=== PATIENT | male | born 1990 | race Hispanic/Latino ===

== ENCOUNTER 2019-12-18 09:37 | Emergency (ER) | payer BC ==
[2019-12-18] MEDS ORDERED: NA CHLORIDE 0.9% 1,000 ML ONE (10:24)
--- NOTE | 2019-12-18 10:36 | RAD REPORT ---
EXAM DESCRIPTION: CT - Stone Protocol - 12/18/2019 10:26 am CLINICAL HISTORY: Flank pain. HEMATURIA COMPARISON: No comparisons TECHNIQUE: Axial images were obtained without oral or IV contrast. Lack of contrast limits solid org an and vascular assessment. The [id number] spans the entirety of the system partially obscuring uppermost abdomen and lung bases. Coronal reformatted images were obtained and reviewed. All CT scans are performed using dose optimization technique as appropriate and may include automated exposure control or mA/KV adjustment according to patient size. FINDINGS: The lower lung navarrete are clear. Imaged portions of the liver and spleen show no suspicious findings on non-contrast imaging.Small fat containing umbilical hernia. The pancreas and adrenal glands are normal. No pathologic lymphadenopat hy in the abdomen or pelvis. No urinary tract stones or obstructive uropathy. No bowel obstruction, free air, free fluid or abscess. Normal appendix noted. No significant bony abnormality. IMPRESSION: No urinary tract stones or obstructive uropathy.
[2019-12-18 10:38] LABS: Absolute Lymphocytes (CBC) 1.9 K/uL (0.7-4.9); Basophils % 0.6 % (0-1.3); MPV 9.4 fL (7.6-11.3); RBC Red Blood Cell Count 5.11 M/uL (4.33-5.43)
[2019-12-18 10:47] LABS: ALT/SGPT 76 U/L (12-78); AST/SGOT 27 U/L (15-37); Albumin 3.5 g/dL (3.4-5.0); Alkaline Phosphatase 116 U/L (45-117); BUN Blood Urea Nitrogen 13 mg/dL (7-18); Bicarbonate 26 mmol/L (21-32); Bilirubin Direct 0.1 mg/dL (0-0.2); Bilirubin Total 0.4 mg/dL (0.2-1.0); Glucose Level 89 mg/dL (74-106); Lipase 67 U/L (73-393); Protein, Total 8.1 g/dL (6.4-8.2); Sodium Level 142 mmol/L (136-145)
--- NOTE | 2019-12-18 11:55 | ER ---
Nurse's Notes [facility] Name: Benitez Argueta Age: 29 yrs Sex: Male : 1990 Arrival Date: 12/18/2019 Time: 09:39 Bed 19 Private MD: Diagnosis: Hematuria, unspecified Presentation: 12/18 09:56 Chief complaint: Patient states: blood in urine with clots that began this morning. Pt ss reports that this has occurred before, but has never been seen for it. Pt states, "I talked to some people and they said it just happens some times." Denies pain. Coronavirus screen: The patient has NOT traveled to [place] in the past 14 days. Proceed with normal triage procedures. Ebola Screen: Patient denies exposure to infectious person. Patient denies travel to an Ebola-affected area in the 21 days before illness onset. Initial Sepsis Screen: Does the patient meet any 2 criteria? No. Patient's initial sepsis screen is negative. Does the patient have a suspected source of infection? No. Patient's initial sepsis screen is negative. Risk Assessment: Do you want to hurt yourself or someone else? Patient reports no desire to harm self or others. 09:56 Method Of Arrival: Ambulatory ss 09:56 Acuity: VAUGHN 3 ss Historical: - Allergies: 09:59 No Known Allergies; ss - Home Meds: 09:59 None [Active]; ss - PMHx: 09:59 None; ss - PSHx: 09:59 None; ss - Immunization history:: Adult Immunizations up to date. - Social history:: Smoking status: Patient denies any tobacco usage or history of. Screenin:00 Abuse screen: Denies threats or abuse. Nutritional screening: No deficits noted. em Tuberculosis screening: No symptoms or risk factors identified. Fall Risk None identified. Assessment: 10:10 General: Appears in no apparent distress. comfortable, Behavior is calm, cooperative, em Denies fever. Pain: Denies pain. Neuro: Level of Consciousness is awake, alert, obeys commands, Oriented to person, place, time, situation, Appropriate for age. Cardiovascular: Capillary refill < 3 seconds Patient's skin is warm and dry. Respiratory: Airway is patent Respiratory effort is even, unlabored, Respiratory pattern is regular, symmetrical. GI: Patient currently denies diarrhea, nausea, vomiting. : Reports blood in urine with clots that started this morning Denies burning with urination, discharge, pain. Derm: Skin is intact, is healthy with good turgor, Skin is pink, warm \\T\\ dry. Musculoskeletal: Capillary refill < 3 seconds, Range of motion: intact in all extremities. 11:30 Reassessment: Patient appears in no apparent distress at this time. Patient and/or em family updated on plan of care and expected duration. Pain level reassessed. Patient is alert, oriented x 3, equal unlabored respirations, skin warm/dry/pink. Patient denies pain at this time. 12:15 Reassessment: Patient appears in no apparent distress at this time. Patient and/or em family updated on plan of care and expected duration. Pain level reassessed. Patient is alert, oriented x 3, equal unlabored respirations, skin warm/dry/pink. reports passing small blood clots towards the end after voiding, provider notified Patient denies pain at this time. Vital Signs: 09:51 BP 129 / 81; Pulse 72; Resp 18; Pulse Ox 99% on R/A; Pain 0/10; em 09:56 BP 129 / 81; Pulse 67; Resp 16; Temp 98.0(TE); Pulse Ox 97% on R/A; Weight 104.33 kg; ss Height 5 ft. 8 in. (172.72 cm); Pain 0/10; 11:00 BP 128 / 85; Pulse 71; Resp 18; Pulse Ox 99% on R/A; Pain 0/10; em 12:01 BP 118 / 78; Pulse 64; Resp 17; Temp 98.1(O); Pulse Ox 100% on R/A; mh5 09:56 Body Mass Index 34.97 (104.33 kg, 172.72 cm) ED Course: 09:39 Patient arrived in ED. fj1 09:49 Mario Contreras PA is PHCP. jmm 09:49 Juan Alberto Elias MD is Attending Physician. jmm 09:55 Mahamed Gillespie, IMMANUEL is Primary Nurse. em 09:58 Triage completed. ss 09:59 Arm band placed on right wrist. ss 10:00 Patient has correct armband on for positive identification. Bed in low position. Call em light in reach. Adult w/ patient. 10:15 Initial lab(s) drawn, by me, sent to lab. Inserted saline lock: 20 gauge in right em antecubital area, using aseptic technique. Blood collected. 10:29 CT Stone Protocol In Process Unspecified. EDMS 11:54 Benton Campa MD is Referral Physician. jmm 12:23 No provider procedures requiring assistance completed. IV discontinued, intact, em bleeding controlled, No redness/swelling at site. Pressure dressing applied. Administered Medications: 10:34 Drug: NS 0.9% 1000 ml Route: IV; Rate: 1 bolus; Site: right antecubital; em 11:30 Follow up: IV Status: Completed infusion; IV Intake: 1000ml em Intake: 11:30 IV: 1000ml; Total: 1000ml. em Outcome: 11:54 Discharge ordered by . jmm 12:26 Discharged to home ambulatory, with family. em 12:26 Condition: good 12:26 Discharge instructions given to patient, family, Instructed on discharge instructions, follow up and referral plans. Demonstrated understanding of instructions, follow-up care. 12:29 Patient left the ED. em Signatures: Dispatcher [employer] EDMS Mario Contreras PA PA jmm Munoz, Edgar, RN RN Dorothea Turner, Payton Brandon RN [facility] Vincenzo Love [facility]
--- NOTE | 2019-12-18 11:55 | EDPHYS ---
Physician Documentation [facility] Name: Benitez Argueta Age: 29 yrs Sex: Male : 1990 Arrival Date: 12/18/2019 Time: 09:39 Bed 19 Private MD: GILDA Physician Juan Alberto Elias HPI: 12/18 10:03 This 29 yrs old Male presents to ER via Ambulatory with complaints of Urinary jmm Problem. 10:03 The patient presents with urinary symptoms, hematuria. Onset: The symptoms/episode jmm began/occurred acutely. Modifying factors: The symptoms are alleviated by nothing, the symptoms are aggravated by nothing. Associated signs and symptoms:. This is a 29 year old male with no known chronic medical conditions that presents to the ED with complaints of blood clots in his urine. Denies abdominal pain, denies painful urination. Denies fever or vomiting. Patient states having a similar episode approx 6 months ago which had resolved. . Historical: - Allergies: 09:59 No Known Allergies; ss - Home Meds: 09:59 None [Active]; ss - PMHx: 09:59 None; ss - PSHx: 09:59 None; ss - Immunization history:: Adult Immunizations up to date. - Social history:: Smoking status: Patient denies any tobacco usage or history of. ROS: 10:03 Constitutional: Negative for fever, chills, and weight loss, Cardiovascular: Negative jmm for chest pain, palpitations, and edema, Respiratory: Negative for shortness of breath, cough, wheezing, and pleuritic chest pain, Abdomen/GI: Negative for abdominal pain, nausea, vomiting, diarrhea, and constipation, Back: Negative for injury and pain. 10:03 : Positive for hematuria. 10:03 All other systems are negative. Exam: 10:03 Constitutional: This is a well developed, well nourished patient who is awake, alert, jmm and in no acute distress. Head/Face: atraumatic. Eyes: EOMI, no conjunctival erythema appreciated ENT: Moist Mucus Membranes Neck: Trachea midline, Supple Chest/axilla: Normal chest wall appearance and motion. Cardiovascular: Regular rate and rhythm. No edema appreciated Respiratory: Normal respirations, no respiratory distress appreciated 10:03 Back: Normal ROM Skin: General appearance color normal MS/ Extremity: Moves all extremities, no obvious deformities appreciated, no edema noted to the lower extremities Neuro: Awake and alert, normal gait Psych: Behavior is normal, Mood is normal, Patient is cooperative and pleasant 10:03 Abdomen/GI: Inspection: abdomen appears normal, Bowel sounds: normal, Palpation: abdomen is soft and non-tender. 10:03 Back: CVA tenderness, is absent. Vital Signs: 09:51 BP 129 / 81; Pulse 72; Resp 18; Pulse Ox 99% on R/A; Pain 0/10; em 09:56 BP 129 / 81; Pulse 67; Resp 16; Temp 98.0(TE); Pulse Ox 97% on R/A; Weight 104.33 kg; ss Height 5 ft. 8 in. (172.72 cm); Pain 0/10; 11:00 BP 128 / 85; Pulse 71; Resp 18; Pulse Ox 99% on R/A; Pain 0/10; em 12:01 BP 118 / 78; Pulse 64; Resp 17; Temp 98.1(O); Pulse Ox 100% on R/A; mh5 09:56 Body Mass Index 34.97 (104.33 kg, 172.72 cm) ss MDM: 10:03 Patient medically screened. [facility] 11:52 Data reviewed: vital signs, nurses notes. Counseling: I had a detailed discussion with don the patient and/or guardian regarding: the historical points, exam findings, and any diagnostic results supporting the discharge/admit diagnosis, lab results, radiology results, the need for outpatient follow up, to return to the emergency department if symptoms worsen or persist or if there are any questions or concerns that arise at home. ED course: Imaging studies negative. Patient is alert and non toxic in appearance in the ED. Patient advised to follow up with urology for further evaluation and this may be a symptoms of cancer. Patient otherwise given strict return precautions. Patient understood and agrees with the plan of care. . 12/18 10:09 Order name: Basic Metabolic Panel; Complete Time: 10:50 [facility] 12/18 10:09 Order name: CBC with Diff; Complete Time: 10:43 [facility] 12/18 10:09 Order name: Creatinine for Radiology; Complete Time: 10:50 [facility] 12/18 10:09 Order name: Hepatic Function; Complete Time: 10:50 [facility] 12/18 10:09 Order name: Lipase; Complete Time: 10:50 [facility] 12/18 10:09 Order name: Urine Culture [facility] 12/18 10:09 Order name: IV Saline Lock; Complete Time: 10:49 [facility] 12/18 10:09 Order name: Labs collected and sent; Complete Time: 10:49 [facility] 12/18 10:09 Order name: Urine Dipstick-Ancillary (obtain specimen); Complete Time: 11:29 [facility] 12/18 10:09 Order name: CT Stone Protocol; Complete Time: 10:43 [facility] 12/18 11:38 Order name: Urine Dipstick--Ancillary (enter results) dh4 Administered Medications: 10:34 Drug: NS 0.9% 1000 ml Route: IV; Rate: 1 bolus; Site: right antecubital; em 11:30 Follow up: IV Status: Completed infusion; IV Intake: 1000ml em Disposition: 17:45 Co-signature as Attending Physician, Juan Alberto Elias MD Chart signed for administrative ps1 purposes. . Disposition: 12/18/19 11:54 Discharged to Home. Impression: Hematuria, unspecified. - Condition is Stable. - Discharge Instructions: Hematuria, Adult. - Medication Reconciliation Form, Thank You Letter, Antibiotic Education, Prescription Opioid Use form. - Follow up: Benton Campa MD; When: 2 - 3 days; Reason: Recheck today's complaints, Continuance of care, Re-evaluation by your physician. Signatures: Dispatcher [employer] EDVA Mario Contreras PA PA [facility] Mahamed Gillespie RN RN em Smirch, Shelby, RN RN ss Singer, Phillip, MD MD ps1 Corrections: (The following items were deleted from the chart) 12:29 11:54 12/18/2019 11:54 Discharged to Home. Impression: Hematuria, unspecified. em Condition is Stable. Forms are Medication Reconciliation Form, Thank You Letter, Antibiotic Education, Prescription Opioid Use. Follow up: Benton Campa; When: 2 - 3 days; Reason: Recheck today's complaints, Continuance of care, Re-evaluation by your physician. [facility]
[2019-12-18 12:39] VITALS: BP 118/78; TEMP 98.1; O2SAT 100
[2019-12-18 12:40] LABS: Urine Blood 3+ (NEG); Urine Glucose NEGATIVE (NEG); Urine Protein 1+ (NEG); Urine pH 5.5 (5.0-7.0)
== END 2019-12-18 12:29 | disposition home or self-care (01) ==
LOC: ER 09:37
DX: R31.9 Hematuria, unspecified (principal)
CPT/HCPCS: 87088; 85025; 80048; 36415; 80076; 81003; 83690; 76377; 74176; 96360; 99284; J7030; 87086

== ENCOUNTER 2020-07-22 01:58 | Emergency (ER) | payer BC, SELFPAY ==
[2020-07-22] MEDS ORDERED: MEPERIDINE HCL 50 MG/ML ONE (02:43)
[2020-07-22] MEDS ORDERED: dexAMETHasone 4 MG/ML VIAL ONE (02:44)
--- NOTE | 2020-07-22 03:25 | EDPHYS ---
Physician Documentation [facility] Name: Benitez Argueta Age: 30 yrs Sex: Male : 1990 Arrival Date: 07/22/2020 Time: 02:02 Bed 4 Private MD: ED Physician Shukri Covarrubias HPI: 07/22 02:30 This 30 yrs old Male presents to ER via Ambulatory with complaints of Low Back rn Pain. 02:30 The patient presents with pain that is acute. The symptoms are located in the low back. rn The pain does not radiate. The problem was sustained when bending over. 02:31 Onset: The symptoms/episode began/occurred yesterday. Modifying factors: The patient rn symptoms are alleviated by specific position, the patient symptoms are aggravated by any movement, supine position. Severity of symptoms: At their worst the symptoms were moderate, in the emergency department the symptoms are unchanged. The patient has not experienced similar symptoms in the past. The patient has not recently seen a physician. No direct trauma or fall, began acutely while bending over to put on pants. NO bowel or bladder issues. No weakness. No numbness/tingling.. Historical: - Allergies: 02:07 No Known Allergies; sg - Home Meds: 02:07 None [Active]; sg - PMHx: 02:07 None; sg - PSHx: 02:07 None; sg - Immunization history:: Adult Immunizations up to date. - Social history:: Smoking status: Patient denies any tobacco usage or history of. - Family history:: not pertinent. - Hospitalizations: : No recent hospitalization is reported. ROS: 02:31 Constitutional: Negative for fever, chills, and weight loss, Neck: Negative for injury, rn pain, and swelling, Cardiovascular: Negative for chest pain, palpitations, and edema, Respiratory: Negative for shortness of breath, cough, wheezing, and pleuritic chest pain, Abdomen/GI: Negative for abdominal pain, nausea, vomiting, diarrhea, and constipation, Back: Negative for injury : Negative for injury, bleeding, discharge, and swelling, MS/Extremity: Negative for injury and deformity, Neuro: Negative for headache, weakness, numbness, tingling, and seizure. Exam: 02:31 Constitutional: This is a well developed, well nourished patient who is awake, alert, men's furnishings salesperson to room, walking slowly Head/Face: Normocephalic, atraumatic. Cardiovascular: Regular rate and rhythm. No pulse deficits. Respiratory: Speaking full sentences, unlabored Abdomen/GI: Soft, non-tender Skin: Warm, dry MS/ Extremity: Pulses equal, no cyanosis. Neurovascular intact. Full, normal range of motion. Equal circumference. Neuro: Awake and alert, GCS 15, oriented to person, place, time, and situation. Cranial nerves II-XII grossly intact. Motor strength 5/5 in all extremities. Sensory grossly intact. Cerebellar exam normal. Antalgic gait Vital Signs: 02:59 BP 136 / 90; Pulse 85; Resp 18; Temp 98.4(TE); Pulse Ox 98% on R/A; Pain 3/10; mg2 03:34 BP 126 / 80; Pulse 78; Resp 18; Temp 98.4; Pulse Ox 100% on R/A; mg2 MDM: 02:04 Patient medically screened. rn 03:22 Differential diagnosis: strain, sciatica, Herniated disc bulging disc, radiculopathy, rn muscle spasm. Data reviewed: vital signs, nurses notes, radiologic studies, CT scan, and as a result, I will discharge patient. Counseling: I had a detailed discussion with the patient and/or guardian regarding: the historical points, exam findings, and any diagnostic results supporting the discharge/admit diagnosis, radiology results, the need for outpatient follow up, to return to the emergency department if symptoms worsen or persist or if there are any questions or concerns that arise at home. Response to treatment: the patient's symptoms have mildly improved after treatment, and as a result, I will discharge patient. Special discussion: I discussed with the patient/guardian in detail that at this point there is no indication for admission to the hospital. It is understood, however, that if the symptoms persist or worsen the patient needs to return immediately for re-evaluation. 03:22 ED course: NO acute findings on ct lumbar spine, improved with medication, will dc home rn with pcp f/u, steroids, muscle relaxer, and return precautions. . 07/22 02:20 Order name: CT Lumbar Spine Wo Con rn 07/22 02:20 Order name: IV Start; Complete Time: 02:37 rn Administered Medications: 02:33 Drug: Demerol 25 mg {Note: RASS 0.} Route: IVP; Site: right antecubital; 03:34 Follow up: Response: No adverse reaction mg2 02:37 Drug: Decadron - Dexamethasone 10 mg Route: IVP; Site: right antecubital; 03:34 Follow up: Response: No adverse reaction mg2 03:34 Drug: TORadol - Ketorolac 15 mg Route: IVP; Site: right antecubital; [facility] 03:34 Follow up: Response: No adverse reaction; Medication administered at discharge. mg2 Disposition: 07/22/20 03:24 Discharged to Home. Impression: Low back pain. - Condition is Stable. - Discharge Instructions: Back Pain, Adult. - Prescriptions for Ultram 50 mg Oral Tablet - take 1 tablet by ORAL route every 6 hours As needed; 15 tablet. Cyclobenzaprine 10 mg Oral Tablet - take 1 tablet by ORAL route every 8 hours As needed; 15 tablet. Medrol (Trevor) 4 mg Oral Tablets, Dose Pack - take 1 tablet by ORAL route as directed - follow package instructions; 1 packet. - Medication Reconciliation Form, Thank You Letter, Antibiotic Education, Prescription Opioid Use form. - Follow up: Private Physician; When: As needed; Reason: Recheck today's complaints, Re-evaluation by your physician. - Problem is new. - Symptoms have improved. Signatures: Dispatcher [employer] EDDavid Deluna RN RN Shukri Covarrubias MD MD [facility]n [facility] Harris RN RN mg2 Corrections: (The following items were deleted from the chart) 03:35 03:24 07/22/2020 03:24 Discharged to Home. Impression: Low back pain. Condition is mg2 Stable. Forms are Medication Reconciliation Form, Thank You Letter, Antibiotic Education, Prescription Opioid Use. Follow up: Private Physician; When: As needed; Reason: Recheck today's complaints, Re-evaluation by your physician. Problem is new. Symptoms have improved. rn
--- NOTE | 2020-07-22 03:25 | ER ---
Nurse's Notes [facility] Name: Benitez Argueta Age: 30 yrs Sex: Male : 1990 Arrival Date: 07/22/2020 Time: 02:02 Bed 4 Private MD: Diagnosis: Low back pain Presentation: 07/22 02:07 Chief complaint: Patient states: Lower back pain that worsens with ambulation/activity, sg pt reports the pain is worse when laying flat, feels most comfortable while sitting upright, pt denies recent injury or trauma for triage, denies N/V/D/Fever at this time. Coronavirus screen: Client denies travel out of the [place] in the last 14 days. At this time, the client does not indicate any symptoms associated with coronavirus-19. Ebola Screen: Patient negative for fever greater than or equal to 101.5 degrees Fahrenheit, and additional compatible Ebola Virus Disease symptoms Patient denies exposure to infectious person. Patient denies travel to an Ebola-affected area in the 21 days before illness onset. No symptoms or risks identified at this time. Initial Sepsis Screen: Does the patient meet any 2 criteria? No. Patient's initial sepsis screen is negative. Does the patient have a suspected source of infection? No. Patient's initial sepsis screen is negative. Risk Assessment: Do you want to hurt yourself or someone else? Patient reports no desire to harm self or others. Onset of symptoms was July 22, 2020. Care prior to arrival: None. Mechanism of Injury: No Mechanism of Injury. Transition of care: patient was not received from another setting of care. 02:07 Method Of Arrival: Ambulatory sg 02:07 Acuity: VAUGHN 4 sg Triage Assessment: 02:07 General: Appears in no apparent distress. uncomfortable, unkempt, well developed, well sg nourished, Behavior is calm, cooperative, appropriate for age. Pain: Complains of pain in lumbar area, left low back and right low back Quality of pain is described as aching, dull, sharp. EENT: No signs and/or symptoms were reported regarding the EENT system. Neuro: Level of Consciousness is awake, alert, obeys commands, Oriented to person, place, time, situation, Child Neurologist are equal bilaterally Moves all extremities. Speech is normal, Facial symmetry appears normal. Cardiovascular: Patient's skin is warm and dry. Chest pain is denied. Respiratory: Airway is patent Respiratory effort is even, unlabored, Respiratory pattern is regular, symmetrical. GI: No signs and/or symptoms were reported involving the gastrointestinal system. : No signs and/or symptoms were reported regarding the genitourinary system. Derm: Skin is pink, warm \T\ dry. Musculoskeletal: Circulation, motion, and sensation intact. Range of motion: intact in all extremities. Historical: - Allergies: 02:07 No Known Allergies; sg - Home Meds: 02:07 None [Active]; sg - PMHx: 02:07 None; sg - PSHx: 02:07 None; sg - Immunization history:: Adult Immunizations up to date. - Social history:: Smoking status: Patient denies any tobacco usage or history of. - Family history:: not pertinent. - Hospitalizations: : No recent hospitalization is reported. Screenin:00 Abuse screen: Denies threats or abuse. Denies injuries from another. Nutritional mg2 screening: No deficits noted. Tuberculosis screening: No symptoms or risk factors identified. Fall Risk IV access (20 points). Assessment: 02:59 General: Appears in no apparent distress. comfortable, Behavior is calm, cooperative. mg2 Pain: Complains of pain in lumbar area. Neuro: Level of Consciousness is awake, alert, obeys commands, Oriented to person, place, time, situation. Cardiovascular: Capillary refill < 3 seconds Patient's skin is warm and dry. Respiratory: Airway is patent Respiratory effort is even, unlabored, Respiratory pattern is regular, symmetrical. GI: No signs and/or symptoms were reported involving the gastrointestinal system. : No signs and/or symptoms were reported regarding the genitourinary system. EENT: No deficits noted. Derm: Skin is intact, is healthy with good turgor, Skin is pink, warm \T\ dry. normal. Musculoskeletal: Circulation, motion, and sensation intact. Capillary refill < 3 seconds, Reports pain in back. Vital Signs: 02:59 BP 136 / 90; Pulse 85; Resp 18; Temp 98.4(TE); Pulse Ox 98% on R/A; Pain 3/10; mg2 03:34 BP 126 / 80; Pulse 78; Resp 18; Temp 98.4; Pulse Ox 100% on R/A; mg2 ED Course: 02:02 Patient arrived in ED. cl3 02:04 Shukri Covarrubias MD is Attending Physician. rn 02:06 Arm band placed on. sg 02:08 Triage completed. 02:09 Ree Polk is Primary Nurse. 02:30 Inserted saline lock: 20 gauge in right antecubital area, using aseptic technique. by gela Keenan RN. 03:02 Patient has correct armband on for positive identification. Door closed. mg2 03:02 No provider procedures requiring assistance completed. mg2 03:03 CT Lumbar Spine Wo Con In Process Unspecified. EDMS 03:34 IV discontinued, intact, bleeding controlled, No redness/swelling at site. Pressure mg2 dressing applied. Administered Medications: 02:33 Drug: Demerol 25 mg {Note: RASS 0.} Route: IVP; Site: right antecubital; 03:34 Follow up: Response: No adverse reaction mg2 02:37 Drug: Decadron - Dexamethasone 10 mg Route: IVP; Site: right antecubital; 03:34 Follow up: Response: No adverse reaction mg2 03:34 Drug: TORadol - Ketorolac 15 mg Route: IVP; Site: right antecubital; [facility] 03:34 Follow up: Response: No adverse reaction; Medication administered at discharge. mg2 Outcome: 03:24 Discharge ordered by . rn 03:35 Discharged to home ambulatory. mg2 03:35 Condition: good 03:35 Discharge instructions given to patient, Instructed on discharge instructions, follow up and referral plans. medication usage, Demonstrated understanding of instructions, follow-up care, medications, Prescriptions given X 3. 03:35 Patient left the ED. mg2 Signatures: Dispatcher [employer] EDNE David Mendez, RN IMMANUEL Shukri Covarrubias MD MD rn Habalo, Winsy Kory Harris RN RN [facility] Emmanuel Tucker cl3
[2020-07-22] MEDS ORDERED: KETOROLAC 30 MG/ML INJ ONE (03:40)
[2020-07-22 03:45] VITALS: TEMP 98.4
[2020-07-22 03:47] VITALS: BP 126/80; O2SAT 100
--- NOTE | 2020-07-22 22:21 | RAD REPORT ---
EXAM DESCRIPTION: CT - Spine Lumbar Wo Con - 07/22/2020 6:35 am CLINICAL HISTORY: 30 years Male LOWER BACK PAIN COMPARISON: None TECHNIQUE: Multiplanar imaging through the lumbar spine without contrast. This exam was performed according to our departmental dose-optimization program, which includes automated exposure control, a djustment of the mA and/or kV according to patient size and/or use of iterative reconstruction techni que. DLP: 1607 mGy*cm FINDINGS: No fracture. No subluxation. Disc spaces are preserved. Paraspinal soft tissues are unremarkable. Visualized abdomen demonstrates no acute abnormality. IMPRESSION: No acute abnormality. No fracture or subluxation. Electronically signed by: Eder Reynolds DO 07/22/2020 3:14 AM CDT Due to temporary technical issues with the PACS/Fluency reporting system, reports are being signed by the in house radiologist without review as a courtesy to ensure prompt reporting. The interpreting r adiologist is fully responsible for the content of the report.
== END 2020-07-22 03:35 | disposition home or self-care (01) ==
LOC: ER 01:58
DX: M54.5 Low back pain (principal)
CPT/HCPCS: 72131; 96374; 96375; 99284; J1100; J2175

== ENCOUNTER 2022-08-29 04:25 | Emergency (ER) | payer SELFPAY ==
[2022-08-29] MEDS ORDERED: IPRATROPIUM BROM 0.5MG/2.5ML ONE (05:08)
[2022-08-29] MEDS ORDERED: ALBUTEROL 2.5 MG/3 ML NEB SOL ONE (05:08)
[2022-08-29 05:49] LABS: Potassium 3.8 mmol/L (3.5-5.1)
[2022-08-29 06:00] LABS: Absolute Lymphocytes (CBC) 2.1 K/uL (0.7-4.9); Hematocrit 36.6 % (39.6-49.0); Lymphocytes % 22.5 % (15.3-44.8); MCV 82.4 fL (80-100); MPV 8.6 fL (7.6-11.3); RBC Red Blood Cell Count 4.44 M/uL (4.33-5.43)
[2022-08-29 06:20] LABS: Protime INR 1.15
--- NOTE | 2022-08-29 07:42 | RAD REPORT ---
EXAM DESCRIPTION: CT - Chest For Pe Angio - 08/29/2022 7:19 am CLINICAL HISTORY: Hemoptysis, cough, chest pain COMPARISON: Chest Single View dated 08/29/2022 TECHNIQUE: Dynamically enhanced 3 mm thick images of the chest were obtained during administration o f approximately 150mL Isovue 370 IV contrast. Coronal and oblique MIP reconstruction images were gene rated and reviewed. Exam utilizes a protocol to evaluate the pulmonary arterial tree. All CT scans are performed using dose optimization technique as appropriate and may include automated exposure control or mA/KV adjustment according to patient size. FINDINGS: No pulmonary emboli are identified. The aorta as imaged shows no acute or suspicious finding. No pericardial thickening or effusion. No focal mass or consolidation. Ground-glass opacities are present in the lower lung navarrete, most pro nounced on the right. No endobronchial lesion. No pleural effusion or pleural thickening. No mediastinal or hilar suspicious masses. No chest wall masses or abnormal axillary lymphadenopathy. IMPRESSION: No pulmonary emboli identified. Lung parenchymal ground-glass opacification most likely alveolar edema from failure or volume overloa d.COVID pneumonia or other viral infiltrative process is possible.
[2022-08-29 08:44] LABS: SARS-CoV-2 Antigen Rapid Res Negative (Negative)
[2022-08-29 08:45] LABS: Troponin High Sensitivity 7.8 pg/mL (<58.9)
--- NOTE | 2022-08-29 09:47 | ER ---
Nurse's Notes [facility] Name: Benitez Argueta Age: 32 yrs Sex: Male : 1990 Arrival Date: 08/29/2022 Time: 04:27 Bed 17 Private MD: Diagnosis: Cough;Hemoptysis Presentation: 08/29 04:42 Chief complaint: Patient states: I've been having a cough for about three weeks and I kd3 started to have some blood in my mucus that's worse in the morning. the blood has seemed to have gotten worse today so i wanted to come get it checked out. Coronavirus screen: Vaccine status: Patient reports receiving the 2nd dose of the covid vaccine. [employer]. Ebola Screen: No symptoms or risks identified at this time. Initial Sepsis Screen: Does the patient meet any 2 criteria? No. Patient's initial sepsis screen is negative. Does the patient have a suspected source of infection? No. Patient's initial sepsis screen is negative. Risk Assessment: Do you want to hurt yourself or someone else? Patient reports no desire to harm self or others. Onset of symptoms was August 29, 2022. 04:42 Method Of Arrival: Ambulatory kd3 04:42 Acuity: VAUGHN 4 kd3 Triage Assessment: 04:45 General: Appears in no apparent distress. Behavior is calm, cooperative. Pain: Denies kd3 pain. EENT: Reports mucus with blood . Neuro: Level of Consciousness is awake, alert, obeys commands, Oriented to person, place, time, situation. Cardiovascular: Patient's skin is warm and dry. Respiratory: Airway is patent Trachea midline Respiratory effort is even, unlabored, Respiratory pattern is regular, symmetrical. Historical: - Allergies: 04:45 No Known Allergies; kd3 - Home Meds: 04:45 None [Active]; kd3 - PMHx: 04:45 None; kd3 - Immunization history:: Adult Immunizations up to date. - Social history:: Smoking status: unknown. Screenin:46 Abuse screen: Denies threats or abuse. Denies injuries from another. Nutritional kd3 screening: No deficits noted. Tuberculosis screening: No symptoms or risk factors identified. Fall Risk None identified. Assessment: 06:29 General: Appears in no apparent distress. Behavior is calm, cooperative. Neuro: Level kd3 of Consciousness is awake, alert, obeys commands, Oriented to person, place, time, situation. Cardiovascular: Patient's skin is warm and dry. Respiratory: Airway is patent Trachea midline Respiratory effort is even, unlabored, Respiratory pattern is regular, symmetrical, Sputum is bloody. 07:53 Reassessment: Patient and/or family updated on plan of care and expected duration. Pain mb8 level reassessed. Patient is alert, oriented x 3, equal unlabored respirations, skin warm/dry/pink. Patient states feeling better. Vital Signs: 04:42 BP 129 / 63; Pulse 109; Resp 19; Temp 98.8; Pulse Ox 99% on R/A; Weight 129.27 kg; kd3 Height 5 ft. 9 in. (175.26 cm); Pain 0/10; 06:29 Pulse 108; Resp 19; Pulse Ox 98% on R/A; kd3 07:52 BP 108 / 63; Pulse 95; Resp 16; Temp 97.8(TE); Pulse Ox 97% on R/A; Pain 0/10; mb8 04:42 Body Mass Index 42.09 (129.27 kg, 175.26 cm) kd3 ED Course: 04:27 Patient arrived in ED. bp1 04:39 Mesfin Burciaga MD is Attending Physician. sp3 04:42 Gilda Saxena, RN is Primary Nurse. kd3 04:45 Triage completed. kd3 04:45 Arm band placed on right wrist. kd3 04:46 Patient has correct armband on for positive identification. kd3 04:46 No provider procedures requiring assistance completed. kd3 05:12 XRAY Chest (1 view) In Process Unspecified. EDMS 05:28 Initial lab(s) drawn, by me, sent to lab. Missed attempt(s): 22 gauge in left in right ll3 wrist. antecubital area. 05:33 PT-INR Sent. kd3 05:33 CBC with Diff Sent. kd3 05:33 Basic Metabolic Panel Sent. kd3 05:33 Flu Sent. kd3 06:28 Inserted saline lock: 22 gauge in right forearm, using aseptic technique. Blood kd3 collected. 06:58 Attending Physician role handed off by Mesfin Burciaga MD rn 06:58 Shukri Covarrubias MD is Attending Physician. rn 07:20 CT Chest For PE Angio In Process Unspecified. EDMS 07:53 No apparent distress. Resting quietly. Awaiting re-evaluation by ER provider. mb8 09:46 Eliceo Herndon MD is Referral Physician. rn 09:57 IV discontinued, intact, bleeding controlled, No redness/swelling at site. Pressure mb8 dressing applied. Administered Medications: 05:25 Drug: DuoNeb (albuterol 2.5 mg, ipratropium 0.5 mg) (3:1) (2.5 mg - 0.5 mg) 3 ml Route: ll3 Nebulizer; 07:05 Follow up: Response: No adverse reaction mb8 Medication: 04:46 VIS not applicable for this client. kd3 Outcome: 09:46 Discharge ordered by MD. rn 09:57 Discharged to home ambulatory. mb8 09:57 Condition: stable 09:57 Discharge instructions given to patient, Instructed on discharge instructions, follow up and referral plans. medication usage, Demonstrated understanding of instructions, follow-up care, medications, Prescriptions given X 2. 09:58 Patient left the ED. mb8 Signatures: Dispatcher [employer] EDMS Shukri Covarrubias MD MD rn Paniauga, Brittany bp1 Patel, Setul, MD MD sp3 Olga Sauceda RN RN 3 Gilda Saxena RN RN kd3 Jerod Benitez, RN RN mb8
--- NOTE | 2022-08-29 09:47 | EDPHYS ---
Physician Documentation [facility] Name: Benitez Argueta Age: 32 yrs Sex: Male : 1990 Arrival Date: 08/29/2022 Time: 04:27 Bed 17 Private MD: ED Physician Shukri Covarrubias HPI: 08/29 05:11 This 32 yrs old Male presents to ER via Ambulatory with complaints of Cough, - sp3 Blood. 05:11 32-year-old male with no significant past medical history presents to the ED with chief sp3 complaint coughing and upper respiratory congestion for approximately 4 to 5 days. Over the last 48 hours, he states that during the cough he has blood-tinged sputum that is progressively increasing. Is any chest pain or back pain or difficulty breathing. He also denies any long periods of immobilization including travel history, smoking, prior history of pulmonary embolism or DVT. Systems, he denies headache, neck pain, back pain, chest pain, abdominal pain, nausea, vomiting, diarrhea, rash, or any other symptoms at this time. He also denies fever known sick contacts.. Historical: - Allergies: 04:45 No Known Allergies; kd3 - Home Meds: 04:45 None [Active]; kd3 - PMHx: 04:45 None; kd3 - Immunization history:: Adult Immunizations up to date. - Social history:: Smoking status: unknown. ROS: 05:13 Constitutional: Negative for fever, chills, and weight loss, Eyes: Negative for injury, sp3 pain, redness, and discharge, Neck: Negative for injury, pain, and swelling, Cardiovascular: Negative for chest pain, palpitations, and edema, Abdomen/GI: Negative for abdominal pain, nausea, vomiting, diarrhea, and constipation, Back: Negative for injury and pain, MS/Extremity: Negative for injury and deformity, Skin: Negative for injury, rash, and discoloration, Neuro: Negative for headache, weakness, numbness, tingling, and seizure, Psych: Negative for depression, anxiety, suicide ideation, homicidal ideation, and hallucinations, Allergy/Immunology: Negative for hives, rash, and allergies, Endocrine: Negative for neck swelling, polydipsia, polyuria, polyphagia, and marked weight changes. 05:13 All other systems are negative. Exam: 05:13 Constitutional: This is a well developed, well nourished patient who is awake, alert, sp3 and in no acute distress. Head/Face: Normocephalic, atraumatic. Eyes: Pupils equal round and reactive to light, extra-ocular motions intact. Lids and lashes normal. Conjunctiva and sclera are non-icteric and not injected. Cornea within normal limits. Periorbital areas with no swelling, redness, or edema. ENT: Nares patent. No nasal discharge, no septal abnormalities noted. External auditory canals are clear. Oropharynx with no redness, swelling, or masses, exudates, or evidence of obstruction, uvula midline. Mucous membranes moist. Neck: Trachea midline, no thyromegaly or masses palpated, and no cervical lymphadenopathy. Supple, full range of motion without nuchal rigidity, or vertebral point tenderness. No Meningismus. Chest/axilla: Normal chest wall appearance and motion. Nontender with no deformity. No lesions are appreciated. Cardiovascular: Regular rate and rhythm with a normal S1 and S2. No gallops, murmurs, or rubs. Normal PMI, no JVD. No pulse deficits. Abdomen/GI: Soft, non-tender, with normal bowel sounds. No distension or tympany. No guarding or rebound. No evidence of tenderness throughout. Back: No spinal tenderness. No costovertebral tenderness. Full range of motion. Skin: Warm, dry with normal turgor. Normal color with no rashes, no lesions, and no evidence of cellulitis. MS/ Extremity: Pulses equal, no cyanosis. Neurovascular intact. Full, normal range of motion. Neuro: Awake and alert, GCS 15, oriented to person, place, time, and situation. Cranial nerves II-XII grossly intact. Motor strength 5/5 in all extremities. Sensory grossly intact. Cerebellar exam normal. Normal gait. 05:13 Cardiovascular: Heart rate in the 88-92 range on my examination.. 05:13 Respiratory: Differential cough with rhonchi diffuse. . Vital Signs: 04:42 BP 129 / 63; Pulse 109; Resp 19; Temp 98.8; Pulse Ox 99% on R/A; Weight 129.27 kg; kd3 Height 5 ft. 9 in. (175.26 cm); Pain 0/10; 06:29 Pulse 108; Resp 19; Pulse Ox 98% on R/A; kd3 07:52 BP 108 / 63; Pulse 95; Resp 16; Temp 97.8(TE); Pulse Ox 97% on R/A; Pain 0/10; mb8 04:42 Body Mass Index 42.09 (129.27 kg, 175.26 cm) kd3 MDM: 04:58 Patient medically screened. sp3 05:14 Data reviewed: vital signs, nurses notes. ED course: 32-year-old male with likely sp3 bronchitis given symptoms described in the HPI. Lower likely possibilities are pneumonia, viral syndrome, influenza, and a distance possibility of pulmonary embolism which we will evaluate with chest CT. I am also not suspicious of sepsis, ACS, vascular pathology including dissection, or any other critical findings at this time. Imaging as noted, laboratory values, and administer nebulizer x1 disposition likely home on antibiotics for bronchitis and follow-up with PCP -- Pt to be signed out to AM physician for final disposition.. 09:45 Differential Diagnosis: Influenza Upper Respiratory Infection Viral Syndrome Pneumonia rn Other pulmonary edema. Counseling: I had a detailed discussion with the patient and/or guardian regarding: the historical points, exam findings, and any diagnostic results supporting the discharge/admit diagnosis, lab results, radiology results, the need for outpatient follow up, to return to the emergency department if symptoms worsen or persist or if there are any questions or concerns that arise at home. Special discussion: I discussed with the patient/guardian in detail that at this point there is no indication for admission to the hospital. It is understood, however, that if the symptoms persist or worsen the patient needs to return immediately for re-evaluation. ED course: CT PE neg for PE, + possible infection vs pulmonary edema, no oxygen requirement, BNP only 600, trop neg, flu and covid neg. Will dc home with abx per Dr. Burciaga's original plan. . 08/29 04:59 Order name: Basic Metabolic Panel; Complete Time: 06:33 sp3 08/29 04:59 Order name: CBC with Diff; Complete Time: 06:33 sp3 08/29 04:59 Order name: PT-INR; Complete Time: 06:33 sp3 08/29 04:59 Order name: Flu; Complete Time: 09:45 sp3 08/29 08:18 Order name: BNP; Complete Time: 09:10 rn 08/29 08:18 Order name: Troponin High Sensitivity; Complete Time: 09:10 rn 08/29 04:59 Order name: XRAY Chest (1 view) sp3 08/29 04:59 Order name: IV Saline Lock; Complete Time: 06:20 sp3 08/29 04:59 Order name: Labs collected and sent; Complete Time: 05:29 sp3 08/29 06:14 Order name: CT Chest For PE Angio; Complete Time: 08:16 sp3 08/29 08:18 Order name: SARS RAPID; Complete Time: 09:10 rn Administered Medications: 05:25 Drug: DuoNeb (albuterol 2.5 mg, ipratropium 0.5 mg) (3:1) (2.5 mg - 0.5 mg) 3 ml Route: ll3 Nebulizer; 07:05 Follow up: Response: No adverse reaction mb8 Disposition Summary: 08/29/22 09:46 Discharge Ordered Location: Home rn Problem: an ongoing problem rn Symptoms: have improved rn Condition: Stable rn Diagnosis - Cough rn - Hemoptysis rn Followup: rn - With: Eliceo Herndon MD - When: As needed - Reason: Recheck today's complaints, Re-evaluation by your physician Discharge Instructions: - Discharge Summary Sheet rn - Hemoptysis rn - Cough, Adult rn Forms: - Medication Reconciliation Form rn - Thank You Letter rn - Antibiotic furniture cleaner - Prescription Opioid Use rn Prescriptions: - levofloxacin 500 mg Oral Tablet - take 1 tablet by ORAL route once daily for 7 days; 7 tablet; Refills: 0, rn Product Selection Permitted - albuterol sulfate 90 mcg/actuation Inhalation HFA aerosol inhaler - inhale 2 puff by INHALATION route every 4-6 hours; 1 Pump; Refills: 0, Product rn Selection Permitted Signatures: Dispatcher [employer] EDShukri Cuadra MD MD rn Patel, Setul, MD MD sp3 Olga Sauceda RN RN ll3 Gilda Saxena RN RN kd3 Jerod Benitez RN mb8 Corrections: (The following items were deleted from the chart) 06:15 05:14 ED course: 32-year-old male with likely bronchitis given symptoms described in sp3 the HPI. Lower likely possibilities are pneumonia, viral syndrome, influenza, and a distance possibility of pulmonary embolism which I have ruled out clinically. I am also not suspicious of sepsis, ACS, vascular pathology including dissection, or any other critical findings at this time. And chest x-ray, laboratory values, and administer nebulizer x1 disposition likely home on antibiotics for bronchitis and follow-up with PCP.. sp3
[2022-08-29 11:15] VITALS: BP 108/63; TEMP 97.8; O2SAT 97
--- NOTE | 2022-08-29 14:05 | RAD REPORT ---
EXAM DESCRIPTION: RAD - Chest Single View - 08/29/2022 5:10 am CLINICAL HISTORY: COUGH COMPARISON: None FINDINGS: The cardiac silhouette appears enlarged. The lungs are clear bilaterally without evidenc e of focal consolidation or overt pulmonary edema. No pleural effusion or pneumothorax. IMPRESSION: Cardiomegaly. No acute cardiopulmonary process. Electronically signed by: Mario Pereira MD 08/29/2022 5:42 AM [employer]ING [employer]ING [employer]OURER Due to temporary technical issues with the PACS/Fluency reporting system, reports are being signed by the in house radiologists without review as a courtesy to insure prompt reporting. The interpreting radiologist is fully responsible for the content of the report.
== END 2022-08-29 09:58 | disposition home or self-care (01) ==
LOC: ER 04:25
DX: R05.9 Cough, unspecified (principal); R04.2 Hemoptysis; Z20.822 Contact with and (suspected) exposure to COVID-19
CPT/HCPCS: 36415; 71045; 71275; 80048; 83880; 84484; 85025; 85610; 87804; 87811; 94640; 99284; Q9967

== ENCOUNTER 2022-10-26 10:19 | Inpatient (IN) | payer OTHER, SELFPAY ==
[2022-10-26] MEDS ORDERED: ASPIRIN 81 MG CHEWABLE TABLET ONE (10:59)
[2022-10-26 11:02] LABS: Hematocrit 22.2 % (39.6-49.0); Lymphocytes % 12.9 % (15.3-44.8); MCV 71.2 fL (80-100); MPV 8.9 fL (7.6-11.3); RBC Red Blood Cell Count 3.11 M/uL (4.33-5.43)
--- NOTE | 2022-10-26 11:13 | RAD REPORT ---
EXAM DESCRIPTION: RAD - Chest Single View - 10/26/2022 11:07 am CLINICAL HISTORY: SOB COMPARISON: Chest Single View dated 08/29/2022 FINDINGS: Lines: None. Lungs: Mild prominence of the pulmonary interstitium. Edema has improved from prior. Pleural: No significant pleural effusions or pneumothorax. Cardiac: Cardiomegaly. Mediastinum: Within normal limits. Bones: No acute fractures. Other: None IMPRESSION: Vascular congestion. No definite alveolar edema. No consolidative airspace disease.
[2022-10-26 11:20] LABS: Potassium 4.2 mmol/L (3.5-5.1)
--- NOTE | 2022-10-26 11:57 | ER ---
Nurse's Notes [facility] Name: Benitez Argueta Age: 32 yrs Sex: Male : 1990 Arrival Date: 10/26/2022 Time: 10:21 Bed 8 Private MD: Diagnosis: Heart failure, unspecified;Hemoptysis;Shortness of breath;Anemia, unspecified;Tachycardia, unspecified Presentation: 10/26 10:27 Chief complaint: Patient states: Palpitations and SOB with exertion for about 2 months. ll1 Sent in for eval by Dr. Torres, HX of A Fib and CHF. Coronavirus screen: Vaccine status: Patient reports receiving the 2nd dose of the covid vaccine. Client denies travel out of the [place] in the last 14 days. At this time, the client does not indicate any symptoms associated with coronavirus-19. Ebola Screen: Patient denies travel to an Ebola-affected area in the 21 days before illness onset. Initial Sepsis Screen: Does the patient meet any 2 criteria? No. Patient's initial sepsis screen is negative. Does the patient have a suspected source of infection? No. Patient's initial sepsis screen is negative. Risk Assessment: Do you want to hurt yourself or someone else? Patient reports no desire to harm self or others. Onset of symptoms was August 26, 2022. 10:27 Method Of Arrival: Ambulatory ll1 10:27 Acuity: VAUGHN 2 ll1 Historical: - Allergies: 10:26 No Known Allergies; ll1 - PMHx: 10:26 A fib; CHF; ll1 - PSHx: 10:26 None; ll1 - Immunization history:: Client reports receiving the 2nd dose of the Covid vaccine. - Social history:: Smoking status: Patient denies any tobacco usage or history of. Screenin:00 [facility] ED Fall Risk Assessment (Adult) History of falling in the last 3 months, ld1 including since admission No falls in past 3 months (0 pts). Abuse screen: Denies threats or abuse. Denies injuries from another. Nutritional screening: No deficits noted. Tuberculosis screening: No symptoms or risk factors identified. Assessment: 11:00 General: Appears in no apparent distress. comfortable, Behavior is calm, cooperative, ld1 appropriate for age. Pain: Denies pain. Neuro: Level of Consciousness is awake, alert, obeys commands, Oriented to person, place, time, situation. Cardiovascular: Capillary refill < 3 seconds Patient's skin is warm and dry. Rhythm is sinus rhythm. Respiratory: Airway is patent Respiratory effort is even, unlabored. GI: Abdomen is round non-distended. : No signs and/or symptoms were reported regarding the genitourinary system. EENT: No signs and/or symptoms were reported regarding the EENT system. Derm: No signs and/or symptoms reported regarding the dermatologic system. Musculoskeletal: No signs and/or symptoms reported regarding the musculoskeletal system. 12:16 Reassessment: Patient appears in no apparent distress at this time. Patient and/or ld1 family updated on plan of care and expected duration. Pain level reassessed. Patient denies pain at this time. 13:45 Reassessment: Patient appears in no apparent distress at this time. No changes from ld1 previously documented assessment. 15:15 Reassessment: No changes from previously documented assessment. Patient and/or family ld1 updated on plan of care and expected duration. Pain level reassessed. Patient denies pain at this time. 17:45 Reassessment: Patient appears in no apparent distress at this time. Patient and/or ld1 family updated on plan of care and expected duration. Pain level reassessed. Patient is alert, oriented x 3, equal unlabored respirations, skin warm/dry/pink. Blood transfusion initiated at this time. Pt denies pain Patient denies pain at this time. 18:22 Reassessment: Patient appears in no apparent distress at this time. No changes from ld1 previously documented assessment. Patient and/or family updated on plan of care and expected duration. Pain level reassessed. Patient denies pain at this time. 18:47 Reassessment: Patient appears in no apparent distress at this time. No changes from ld1 previously documented assessment. Patient and/or family updated on plan of care and expected duration. Pain level reassessed. Patient is alert, oriented x 3, equal unlabored respirations, skin warm/dry/pink. Patient denies pain at this time. 19:20 General: Appears in no apparent distress. comfortable, Behavior is calm, cooperative. kd3 Neuro: Level of Consciousness is awake, alert, obeys commands, Oriented to person, place, time, situation. Cardiovascular: Capillary refill < 3 seconds in bilateral fingers Patient's skin is warm and dry. Respiratory: Airway is patent Respiratory effort is even, unlabored. 20:07 General: blood transfusion complete . kd3 Vital Signs: 10:27 BP 111 / 80; Pulse 120; Resp 18; Temp 98.1; Pulse Ox 100% ; Weight 126.1 kg; Height 5 ll1 ft. 9 in. (175.26 cm); Pain 0/10; 11:00 BP 118 / 78; Pulse 116; Resp 18; Pulse Ox 100% on R/A; Pain 0/10; ld1 12:16 BP 102 / 82; Pulse 111; Resp 18; Pulse Ox 97% on R/A; Pain 0/10; ld1 13:30 BP 101 / 74; Pulse 105; Resp 25; Pulse Ox 98% on R/A; ld1 14:30 BP 103 / 75; Pulse 107; Resp 16; Pulse Ox 100% on R/A; ld1 15:30 BP 102 / 68; Pulse 104; Resp 25; Pulse Ox 100% on R/A; ld1 16:30 BP 105 / 75; Pulse 107; Resp 10; Pulse Ox 100% on R/A; ld1 17:00 BP 105 / 71; Pulse 106; Resp 13; Pulse Ox 100% on R/A; ld1 17:38 BP 103 / 67; Pulse 110; Resp 15; Pulse Ox 98% on R/A; ld1 17:50 BP 97 / 54; Pulse 112; Resp 11; Temp 98.6(TE); Pulse Ox 100% on R/A; Pain 0/10; ld1 17:55 BP 111 / 72; Pulse 113; Resp 10; Temp 98.7(TE); Pulse Ox 100% on R/A; ld1 18:23 BP 105 / 62; Pulse 111; Resp 15; Pulse Ox 98% on R/A; ld1 18:47 BP 101 / 64; Pulse 112; Resp 17; Temp 98.4(O); Pulse Ox 99% on R/A; ld1 19:20 BP 106 / 62; Pulse 113; Resp 19; Temp 99(O); Pulse Ox 100% on R/A; kd3 10:27 Body Mass Index 41.05 (126.10 kg, 175.26 cm) ll1 ED Course: 10:21 Patient arrived in ED. mr 10:28 Triage completed. ll1 10:28 Arm band placed on Patient placed in an exam room, on a stretcher. ll1 10:29 Hal Barron DO is Attending Physician. ms3 10:42 EKG done, by ED staff, reviewed by Hal Barron DO. jw7 10:48 Missed attempt(s): 20 gauge in right antecubital area. Bleeding controlled, band aid aa5 applied, catheter tip intact. 10:50 Initial lab(s) drawn, by me, sent to lab. Inserted saline lock: 20 gauge in right aa5 forearm, using aseptic technique. Blood collected. 11:00 Johanna Bower, RN is Primary Nurse. ld1 11:00 Patient has correct armband on for positive identification. Placed in gown. Bed in low ld1 position. Call light in reach. Side rails up X2. monitoring analyst on. Pulse ox on. NIBP on. Notified ED physician of. Door closed. Noise minimized. Warm blanket given. 11:00 No provider procedures requiring assistance completed. ld1 11:09 XRAY Chest (1 view) In Process Unspecified. EDMS 11:37 Initial lab(s) drawn, by me, sent to lab. T\T\S collected, blood band applied to patient. jw7 11:38 Ferritin Sent. jw7 11:38 Bb Add On Sent. jw7 11:55 Rashi Mcdaniel MD is Hospitalizing Provider. ms3 17:56 Inserted saline lock: 20 gauge in left antecubital area, using aseptic technique. ld1 19:23 Primary Nurse role handed off by Johanna Bower, IMMANUEL kd3 19:23 Gilda Saxena, IMMANUEL is Primary Nurse. kd3 Administered Medications: 11:00 Drug: Aspirin Chewable Tablet 324 mg Route: PO; ld1 12:00 Follow up: Response: No adverse reaction ld1 Medication: 11:00 VIS not applicable for this client. ld1 Outcome: 11:56 Decision to Hospitalize by Provider. ms3 0106 16:35 Patient left the ED. ss Signatures: Dispatcher [employer] [facility] Felisha AmadorMaria Luz RN RN aa5 Dorothea James RN RN Mae Tucker RN RN ll1 Hal Barron DO DO ms3 Johanna Bower, RN RN ld1 Gilda Saxena RN RN kd3 Karla Rangel jw7 Corrections: (The following items were deleted from the chart) 10/26 11:45 11:38 TYPE AND SCREEN+BB.LAB.HITESH drawn and sent. jw7 EDMS
--- NOTE | 2022-10-26 11:57 | EDPHYS ---
Physician Documentation [facility] Name: Benitez Argueta Age: 32 yrs Sex: Male : 1990 Arrival Date: 10/26/2022 Time: 10:21 Bed 8 Private MD: ED Physician Hal Barron HPI: 10/26 10:44 This 32 yrs old Male presents to ER via Ambulatory with complaints of AFIB/CHF.ms3 10:44 32-year-old male with no past medical history presents after echo at Dr. Torres's ms3 office. Patient states he has had shortness of breath for 1 month. Patient denies alleviating factors. Patient states that shortness of breath is worse when walking. Patient has seen Dr. Herndon and he states he was prescribed inhalers.. Historical: - Allergies: 10:26 No Known Allergies; ll1 - PMHx: 10:26 A fib; CHF; ll1 - PSHx: 10:26 None; ll1 - Immunization history:: Client reports receiving the 2nd dose of the Covid vaccine. - Social history:: Smoking status: Patient denies any tobacco usage or history of. ROS: 10:44 Constitutional: Negative for fever, and chills. Neck: Negative for injury, pain, and ms3 swelling, Cardiovascular: Negative for chest pain, and palpitations. 10:44 Skin: Negative for injury, rash, and discoloration. 10:44 Respiratory: Positive for shortness of breath. Exam: 10:44 Constitutional: This is a well developed, well nourished patient who is awake, alert, ms3 and in no acute distress. Neck: Trachea midline, no cervical lymphadenopathy. Supple, full range of motion without nuchal rigidity, or vertebral point tenderness. No Meningismus. Chest/axilla: Normal chest wall appearance and motion. Nontender with no deformity. 10:44 Cardiovascular: Rate: tachycardic, actual rate is 119 bpm, Rhythm: regular, Pulses: no pulse deficits are appreciated, Heart sounds: gallop. 10:44 ECG was reviewed by the Attending Physician. Vital Signs: 10:27 BP 111 / 80; Pulse 120; Resp 18; Temp 98.1; Pulse Ox 100% ; Weight 126.1 kg; Height 5 ll1 ft. 9 in. (175.26 cm); Pain 0/10; 11:00 BP 118 / 78; Pulse 116; Resp 18; Pulse Ox 100% on R/A; Pain 0/10; ld1 12:16 BP 102 / 82; Pulse 111; Resp 18; Pulse Ox 97% on R/A; Pain 0/10; ld1 13:30 BP 101 / 74; Pulse 105; Resp 25; Pulse Ox 98% on R/A; ld1 14:30 BP 103 / 75; Pulse 107; Resp 16; Pulse Ox 100% on R/A; ld1 15:30 BP 102 / 68; Pulse 104; Resp 25; Pulse Ox 100% on R/A; ld1 16:30 BP 105 / 75; Pulse 107; Resp 10; Pulse Ox 100% on R/A; ld1 17:00 BP 105 / 71; Pulse 106; Resp 13; Pulse Ox 100% on R/A; ld1 17:38 BP 103 / 67; Pulse 110; Resp 15; Pulse Ox 98% on R/A; ld1 17:50 BP 97 / 54; Pulse 112; Resp 11; Temp 98.6(TE); Pulse Ox 100% on R/A; Pain 0/10; ld1 17:55 BP 111 / 72; Pulse 113; Resp 10; Temp 98.7(TE); Pulse Ox 100% on R/A; ld1 18:23 BP 105 / 62; Pulse 111; Resp 15; Pulse Ox 98% on R/A; ld1 18:47 BP 101 / 64; Pulse 112; Resp 17; Temp 98.4(O); Pulse Ox 99% on R/A; ld1 19:20 BP 106 / 62; Pulse 113; Resp 19; Temp 99(O); Pulse Ox 100% on R/A; kd3 10:27 Body Mass Index 41.05 (126.10 kg, 175.26 cm) ll1 MDM: 10:38 Patient medically screened. ms3 10:48 ED course: Discussed case with Dr Torres and he would like patient admitted. He states ms3 echo showed 20%EF with atrial fibrillation with RVR. EKG in ED reviewed with Dr Torres showing sinus tachycardia. He recommends starting beta mann and Entresto.. 11:56 Differential diagnosis: CHF exacerbation, pulmonary edema. Data reviewed: vital signs, ms3 nurses notes, lab test result(s), EKG, radiologic studies, plain films. Test interpretation: by ED physician or midlevel provider: plain radiologic studies. Counseling: I had a detailed discussion with the patient and/or guardian regarding: the historical points, exam findings, and any diagnostic results supporting the discharge/admit diagnosis, lab results, radiology results, the need for further work-up and treatment in the hospital. ED course: Discussed case with Dr. Mcdaniel, Dr. Parra, Dr. Torres. Discussed Dr. Parra and Dr. Torres's recommendations with him. All questions were answered. Discussed necessity of admission with patient. 1 unit PRBCs ordered for hemoglobin of 6.8. Chest x-ray interpreted by me revealed enlarged heart with vascular congestion.. 10/26 10:43 Order name: Basic Metabolic Panel; Complete Time: 11:48 ms3 10/26 10:43 Order name: CBC with Diff; Complete Time: 11:08 ms3 10/26 10:43 Order name: NT PRO-BNP; Complete Time: 11:48 ms3 10/26 10:43 Order name: Troponin HS; Complete Time: 11:48 ms3 10/26 10:48 Order name: Thyroid Stimulat Hormone; Complete Time: 11:48 ms3 10/26 10:55 Order name: D-Dimer; Complete Time: 11:48 ms3 10/26 11:08 Order name: Ferritin; Complete Time: 12:30 snw 10/26 11:24 Order name: Bb Add On bd 10/26 11:45 Order name: Type and Screen Tube method EDMS 10/26 11:45 Order name: Packed RBC Leukored EDMS 10/26 12:21 Order name: SARS-COV-2 Antigen Rapid; Complete Time: 17:07 bd 10/26 12:31 Order name: CRP ms3 10/26 13:20 Order name: ABO/RH no charge; Complete Time: 17:07 EDMS 10/26 13:29 Order name: C-Reactive Protein; Complete Time: 17:07 EDMS 10/26 13:58 Order name: Phosphorus; Complete Time: 17:07 EDMS 10/26 13:58 Order name: Magnesium; Complete Time: 17:07 EDMS 10/26 14:03 Order name: Troponin High Sensitivity; Complete Time: 17:07 EDMS 10/26 20:57 Order name: Protime (+INR); Complete Time: 21:52 EDMS 10/26 21:08 Order name: Liver (Hepatic) Function; Complete Time: 21:52 EDMS 10/26 21:09 Order name: Troponin High Sensitivity; Complete Time: 21:52 EDMS 10/26 21:42 Order name: Procalcitonin; Complete Time: 21:52 EDMS 10/26 22:19 Order name: Hemoglobin EDMS 10/26 22:19 Order name: Hematocrit EDMS 10/27 04:56 Order name: CBC with Automated Diff EDMS 10/27 05:11 Order name: Basic Metabolic Panel EDMS 10/27 05:11 Order name: Lipid Profile EDMS 10/27 09:39 Order name: Transferrin Sat/Iron Binding EDMS 10/27 09:39 Order name: Ferritin EDMS 10/27 11:22 Order name: Hemoglobin EDMS 10/26 10:43 Order name: XRAY Chest (1 view); Complete Time: 11:14 ms3 10/26 10:43 Order name: EKG; Complete Time: 10:44 ms3 10/26 10:43 Order name: Cardiac monitoring; Complete Time: 10:44 ms3 10/26 10:43 Order name: EKG - Nurse/Tech; Complete Time: 10:44 ms3 10/26 10:43 Order name: IV Saline Lock; Complete Time: 10:54 ms3 10/26 10:43 Order name: Labs collected and sent; Complete Time: 10:54 ms3 10/26 10:43 Order name: O2 Per Protocol; Complete Time: 10:54 ms3 10/26 10:43 Order name: O2 Sat Monitoring; Complete Time: 10:44 ms3 10/26 13:05 Order name: Labs - recollect needed: collect aborh no charge; Complete Time: 17:57 bd 10/26 14:43 Order name: CT; Complete Time: 17:07 EDMS 10/27 07:50 Order name: US EDMS 10/27 11:22 Order name: Hematocrit EDMS 10/27 12:12 Order name: Diet Regular; Complete Time: 12:13 ph 10/27 16:22 Order name: Hemoglobin EDMS 10/27 16:22 Order name: Hematocrit EDMS EC:44 Rate is 116 beats/min. Rhythm is regular. QRS [place] is Normal. [place] interval is normal. ms3 QRS interval is normal. Clinical impression: Sinus tachycardia. Interpreted by me. Reviewed by me. Administered Medications: 11:00 Drug: Aspirin Chewable Tablet 324 mg Route: PO; ld1 12:00 Follow up: Response: No adverse reaction ld1 Disposition: 12:08 Critical Care:. ms3 Disposition Summary: 10/26/22 11:56 Hospitalization Ordered Hospitalization Status: Inpatient Admission ms3 Provider: Rashi Mcdaniel ms3 Condition: Stable ms3 Problem: new ms3 Symptoms: are unchanged ms3 Bed/Room Type: Standard ms3 Location: Intensive Care Unit(10/27/22 15:48) eb Room Assignment: 2-(10/27/22 15:48) eb Diagnosis - Heart failure, unspecified ms3 - Hemoptysis ms3 - Shortness of breath ms3 - Anemia, unspecified ms3 - Tachycardia, unspecified ms3 Forms: - Medication Reconciliation Form ms3 - SBAR form ms3 Critical care time excluding procedures: 12:08 Critical care time: Bedside Care: 30 minutes, Consultation: 5 minutes. Total time: 35 ms3 minutes Signatures: Dispatcher [employer] EDMS Kat Chavis Shelly, METAL TESTER-C METAL TESTER-Csnw Jeremi Anton METAL TESTER-C METAL TESTER-Cla1 Zulema Kent, IMMANUEL RN cg Jessica Armendariz Lynsay, RN RN ll1 Hal Barron DO DO ms3 Johanna Bower RN RN ld1 Corrections: (The following items were deleted from the chart) 11:45 11:09 TYPE AND SCREEN+BB.LAB.BRZ ordered. EDMS EDMS 20:09 11:56 Telemetry/MedSurg (Inpatient) ms3 cg 20:09 11:56 ms3 cg 10/27 15:48 10/26 20:09 [facility] ER HOLD cg eb 10/27 15:48 10/26 20:09 ERHOLD- cg eb
[2022-10-26 12:44] LABS: SARS-CoV-2 Antigen Rapid Res Negative (Negative)
[2022-10-26] MEDS ORDERED: ACETAMINOPHEN 500 MG TAB PO PRN (13:03)
[2022-10-26] MEDS ORDERED: ALBUTEROL 2.5 MG/3 ML NEB SOL NEB PRN ×2 (13:03→15:00)
[2022-10-26 13:58] LABS: Magnesium 2.1 mg/dL (1.6-2.4); Phosphorus 4.2 mg/dL (2.5-4.9)
--- NOTE | 2022-10-26 14:43 | RAD REPORT ---
EXAM DESCRIPTION: CT - Thorax Wo Con CLINICAL HISTORY: Chest pain hemoptysis COMPARISON: Chest For Pe Angio dated 08/29/2022 FINDINGS: There is moderate ground-glass attenuation seen in both lungs greatest in the lung bases a nd slightly more significant on the right. This has progressed since comparative study dated 08/29/20 22. No pleural thickening or pleural effusion. No pneumothorax. Cardiac size is prominent. No axillary, mediastinal or hilar adenopathy. No concerning bony finding. No gross upper abdominal finding. All CT scans are performed using dose optimization technique as appropriate and may include automated exposure control or mA/KV adjustment according to patient size. IMPRESSION: Moderate ground-glass attenuation is seen in both lungs, greatest in the lower lobes and more pronounced on the right.This is moderately progressive since comparative study. Findings are nonspecific but may represent pulmonary edema/ volume overload or viral alveolitis or CO VID infection.
[2022-10-26] MEDS: FUROSEMIDE 20 MG/ 2ML VIAL IV SCH (17:00)
--- NOTE | 2022-10-26 17:05 | P.HP ---
Certification for Inpatient With expected LOS: >2 Midnights Patient will require the following post-hospital care: None Practitioner: I am a practitioner with admitting privileges, knowledge of patient current condition, hospital course, and medical plan of care. Services: Services provided to patient in accordance with Admission requirements found in Title 42 Section 412.3 of the Code of Federal Regulations <Ilya Roperd - Last Filed: 10/26/22 17:00> Patient History Date of Service: 10/26/22 Primary Care Provider: None Reason for admission: Hemoptysis, abnormal ECHO History of Present Illness: This is a 32 year old male with PMH of atrial fib and CHF who presents to the emergency department by Dr. Torres due to abnormal ECHO. Patient states that he's been having shortness of breath and hemoptysis for one month. He initial went to the ER a month ago for treatment but he was discharged home with some antibiotics for "unknown infection". He did not progress after taking the antibiotic and was instructed to see Dr. Ervin. Dr. Ervin started him on an inhaler, diuretic and steroids. He received no major improving from the treatment. He reports shortness of breath on exertion with no alleviating factors. He also stated that he's been having a hard time staying asleep. Patient does report snoring and feeling very fatigued throughout the day. He reports an average of 4 hours of sleep a day. Patient received a breathing treatment in the ER and states that he is feeling much better. In the ER, his labs were significant for anemia with hemoglobin of 6.8, elevated d-dimer of 830, no chest pain reported, elevated BNP 1,582. CT chest showed moderate ground-glass attenuation is seen in both lungs, greatest in the lower lobes and more pronounced on the right. Patient will admitted under the care of Dr. Mcdaniel. We will consult cardiology and pulmonology for further recommendations Home medications list reviewed: Yes - Past Medical/Surgical History -: Afib -: CHF Past Surgical History: Patient denies surgical history - Family History Family History: Reviewed- Non-Contributory - Social History Smoking Status: Never smoker Alcohol use: Yes CD- Drugs: No Caffeine use: Yes Place of Residence: Home <KarnackAyaan - Last Filed: 10/26/22 17:00> Date of Service: 10/27/22 <JonasRashi - Last Filed: 10/27/22 12:40> Allergies No Known Allergies Allergy (Unverified 10/26/22 13:26) Review of Systems 10-point ROS is otherwise unremarkable Respiratory: Shortness of Breath, Hemoptysis, SOB with Excertion Neurological: Other (insomnia) <Ayaan Roper - Last Filed: 10/26/22 17:00> Physical Examination - Vital Signs Temperature: 98.1 F Blood Pressure: 116/87 Pulse: 118 Respirations: 22 Pulse Ox (%): 100 - Physical Exam General: Alert, In no apparent distress, Oriented x3 HEENT: Atraumatic, Normocephalic, PERRLA Neck: Supple, 2+ carotid pulse no bruit Respiratory: Clear to auscultation bilaterally, Normal air movement Cardiovascular: No edema, Normal pulses Capillary refill: <2 Seconds Gastrointestinal: Normal bowel sounds Musculoskeletal: No clubbing, No swelling Integumentary: No rashes, No breakdown Neurological: Normal speech, Normal strength at 5/5 x4 extr Lymphatics: No axilla or inguinal lymphadenopathy - Studies Laboratory Data (last 24 hrs) 10/26/22 10:50: WBC 7.90, Hgb 6.8 L*, Hct 22.2 L, Plt Count 227 10/26/22 10:50: Sodium 139, Potassium 4.2, BUN 20 H, Creatinine 1.05, Glucose 111 H <Ayaan Roper - Last Filed: 10/26/22 17:00> Assessment and Plan - Plan Assessment Hemoptysis Mycrocytic hypochromic anemia Acute on chronic CHF exacerbation Atrial Fib JANNY Acute pulmonary edema Plan Hemoptysis -Hemoglobin 6.8, 1 unit to be transfused -Recheck H/H per facility protocol Mycrocytic hypochromic anemia Hgb 6.8, MCV 71.2, MCH 21.9 -Lab studies Acute on chronic CHF exacerbation -Chest CT Moderate ground-glass attenuation is seen in both lungs, greatest in the lower lobes and more pronounced on the right. This is moderately progressive since comparative study. Findings are nonspecific but may represent pulmonary edema/ volume overload or viral alveolitis or COVID infection -BNP- 1, 582 -Continue diuresis, nebulizer treatment -Need update ECHO -D-dimer- 830 -Cardiology consulted, recommendations appreciated Atrial Fib -Currently ST -If blood pressure is appropriate, per Dr. Torres, start patient on Entresto or Beta with persistent tachycardia JANNY -Patient reports snoring at night, always fatigued -Patient could benefit from sleep study -Pulmonology consulted Acute pulmonary edema -Chest CT Moderate ground-glass attenuation is seen in both lungs, greatest in the lower lobes and more pronounced on the right. This is moderately progressive since comparative study. Findings are nonspecific but may represent pulmonary edema/ volume overload or viral alveolitis or COVID infection - Continue diuresis, nebulizer treatment - Pulmonology consulted, recommendations appreciated PPX- SCDs, PPI Code status- Full code Discharge Plan: Home Plan to discharge in: 48 Hours - Advance Directives Does patient have a Living Will: No Does patient have a Durable POA for Healthcare: No - Code Status/Comfort Care Code Status Assessed: Yes (Full code) Critical Care: Yes Time Spent Managing Pts Care (In Minutes): 70 <Ayaan Roper - Last Filed: 10/26/22 17:00> Physician Review: Patient Assessed, Agree with Above Assessment and Plan <Rashi Mcdaniel - Last Filed: 10/27/22 12:40>
[2022-10-26] MEDS ORDERED: NA CHLORIDE 0.9% 500 ML ONE (17:32)
[2022-10-26 20:57] LABS: Protime INR 1.56
[2022-10-26] MEDS: ATORVASTATIN 40 MG TAB PO SCH (21:00)
[2022-10-26 21:07] LABS: Albumin 3.2 g/dL (3.4-5.0); Bilirubin Direct 0.5 mg/dL (0-0.2); Bilirubin Total 2.1 mg/dL (0.2-1.0); Protein, Total 6.8 g/dL (6.4-8.2)
[2022-10-26 22:18] LABS: Hematocrit 22.9 % (39.6-49.0)
[2022-10-26] MEDS ORDERED: FUROSEMIDE 20 MG/ 2ML VIAL ONE (23:39)
[2022-10-26] MEDS ORDERED: ATORVASTATIN 20 MG TAB ONE (23:39)
[2022-10-27] MEDS ORDERED: BENZONATATE 100 MG CAP PO ONE ×2 (02:16→13:07)
[2022-10-27] MEDS: BENZONATATE 100 MG CAP PO PRN ×2 (02:20→13:21)
[2022-10-27 04:55] LABS: Absolute Lymphocytes (CBC) 0.9 K/uL (0.7-4.9); Hematocrit 23.6 % (39.6-49.0); Lymphocytes % 10.9 % (15.3-44.8); MCV 72.8 fL (80-100); RBC Red Blood Cell Count 3.25 M/uL (4.33-5.43)
--- NOTE | 2022-10-27 07:50 | RAD REPORT ---
EXAM DESCRIPTION: US - Abdomen Exam Limited - 10/27/2022 6:54 am CLINICAL HISTORY: RUQ for elevated T Bili/inr COMPARISON: <Comparisons> FINDINGS: The gallbladder demonstrates no gallstones. No pericholecystic fluid or gallbladder wall t hickening. The common bile duct is normal measuring 2 mm. The liver demonstrates increased echogenicity. IMPRESSION: Negative for cholelithiasis or acute cholecystitis. No biliary duct dilatation. Hepatic steatosis.
[2022-10-27] MEDS ORDERED: INFLUENZA VACCINE (for 6+ mo) 0.5 ML DOSE IMVAC ONE (08:00)
[2022-10-27] MEDS: FUROSEMIDE 20 MG/ 2ML VIAL IV SCH ×2 (09:00→17:05)
[2022-10-27] MEDS: SPIRONOLACTONE 25 MG TABLET PO SCH (09:00)
[2022-10-27] MEDS ORDERED: FUROSEMIDE 20 MG/ 2ML VIAL ONE (09:05)
--- NOTE | 2022-10-27 09:10 | P.PN ---
Subjective Date of Service: 10/27/22 Primary Care Provider: None Chief Complaint: Hemoptysis, abnormal ECHO No significant change he did sleep well last night denies any shortness of breath the patient had microcytic anemia status posttransfusion still is anemic groundglass changes on his CT scan right worse than the left Review of Systems General: Weakness Respiratory: Shortness of Breath, Hemoptysis Physical Examination - Vital Signs Temperature: 98.8 F Blood Pressure: 111/75 Pulse: 106 Respirations: 21 Pulse Ox (%): 96 - Physical Exam General: Alert, Oriented x3 HEENT: Atraumatic Neck: Supple Respiratory: Clear to auscultation bilaterally Cardiovascular: No edema, Regular rate/rhythm - Studies Laboratory Data (last 24 hrs) 10/26/22 10:50: WBC 7.90, Hgb 6.8 L*, Hct 22.2 L, Plt Count 227 10/26/22 10:50: Sodium 139, Potassium 4.2, BUN 20 H, Creatinine 1.05, Glucose 111 H Assessment And Plan - Current Problems (Diagnosis) (1) Hemoptysis Current Visit: Yes Status: Acute Plan: Patient is 32 years of age admitted with hemoptysis shortness of breath currently he had dilated cardiomyopathy and 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
[2022-10-27 09:39] LABS: Ferritin 56.4 ng/mL (26-388)
[2022-10-27] MEDS ORDERED: SPIRONOLACTONE 25 MG TABLET ONE (10:21)
[2022-10-27 11:21] LABS: Hematocrit 26.3 % (39.6-49.0)
--- NOTE | 2022-10-27 12:20 | P.PN ---
Subjective Date of Service: 10/27/22 Primary Care Provider: None Chief Complaint: Hemoptysis, abnormal ECHO No acute events overnight. He continues to display hemoptysis. He is s/p 1 unit pRBC, and hemoglobin has stabilized. He reports persistent shortness of breath and hemoptysis. He denies any chest pain or palpitations. Review of Systems 10-point ROS is otherwise unremarkable Respiratory: Shortness of Breath, Hemoptysis, Sputum Cardiovascular: Orthopnea, Edema Physical Examination - Vital Signs Temperature: 98.8 F Blood Pressure: 111/75 Pulse: 106 Respirations: 21 Pulse Ox (%): 96 - Physical Exam General: Alert, In no apparent distress, Oriented x3 HEENT: Atraumatic, Mucous membr. moist/pink, EOMI, Sclerae nonicteric Neck: Other (difficult to assess JVD given habitus) Respiratory: Diminished, Crackles/rales (bibasilar) Cardiovascular: No gallops, No rubs, No murmurs, Edema (2+ BLE), Irregular heart rate/rhythm Gastrointestinal: Normal bowel sounds, Soft and benign, Non-distended, No tenderness, No rebound, No guarding Musculoskeletal: No clubbing Integumentary: No rashes Neurological: Normal speech, Cranial nerves 3-12 intact, Normal affect Assessment And Plan - Plan # Acute Decompensated Systolic Congestive Heart Failure with Reduced Ejection Fraction # SIRS Criteria (Tachycardia, Tachypnea) due to above - no current evidence of infection - Consult Cardiology and Dr. Torres aware - recommendations appreciated - Outpatient transthoracic echocardiogram reportedly with dilated cardiomyopathy and LVEF <20 % - NT-Pro BNP = 1,582 - Diuresis with IV furosemide - Started metoprolol, if blood pressure tolerates, will consider adding sacubutril-valsartan - Continue spironolactone - Daily weights - Strict I/O - Cardiac diet, 1.5 L fluid restriction, 2 g Na restriction # Suspect Acute on Chronic Blood Loss Anemia secondary to Hemoptysis Differential diagnoses at this time is broad. - Chest x-ray = "Vascular congestion. No definite alveolar edema. No consolidative airspace disease." - CT chest = "Moderate ground-glass attenuation is seen in both lungs, greatest in the lower lobes and more pronounced on the right.This is moderately progressive since comparative study. Findings are nonspecific but may represent pulmonary edema/ volume overload or viral alveolitis or COVID infection." - Pulmonary Medicine consulted and spoke with Dr. Herndon - recommendations appreciated - Serial H&H - s/p 1 unit pRBCs thus far - Hgb: 6.8 -> 7.2 -> 7.5 -> 8.3 - CRP = 33.5 - Ordered LO, C-ANCA, P-ANCA, C3/C4, anti-phospholipid antibodies, anti-GBM, GILBERTO level, and HIV - Verbal consent obtained for HIV screen # Paroxysmal Atrial Fibrillation with Rapid Ventricular Response His [id number] = 1 (CHF=1). - Consult Cardiology and Dr. Brian escamilla - recommendations appreciated - Evaluation thus far: - Troponin = 11.0 -> 10.1 -> 10.5 - Potassium = 4.0, Magnesium = 2.1 - Target K> 4, Mg >2 - TSH = 0.387 - BNP = 1,582 - For rate control: - Started metoprolol # Hepatic Steatosis # Morbid Obesity - BMI 41.1 kg/m2 - RUQ ultrasound = "negative for cholelithiasis or acute cholecystitis. No biliary duct dilatation. 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
[2022-10-27] MEDS: METOPROLOL TAR 25 MG TAB PO SCH ×2 (12:30→17:05)
[2022-10-27] MEDS ORDERED: guaiFENesin 100 MG/5 ML UCUP PO PRN (12:40)
[2022-10-27] MEDS ORDERED: METOPROLOL TAR 25 MG TAB ONE (13:07)
[2022-10-27 16:21] LABS: Hematocrit 25.2 % (39.6-49.0)
[2022-10-27 18:05] LABS: Specific Gravity 1.014 (1.005-1.030); Urine Bilirubin NEGATIVE (Negative); Urine Blood Negative (Negative); Urine Clarity Clear (Clear); Urine Color Yellow (Yellow); Urine Glucose NEGATIVE (Negative); Urine Protein NEGATIVE (Negative); Urine Urobilinogen 4+ (Over) (Normal)
[2022-10-27 18:13] LABS: Barbiturates NEGATIVE (NEGATIVE); Benzodiazepines NEGATIVE (NEGATIVE); Cocaine NEGATIVE (NEGATIVE); METHAMPHETAM NEGATIVE (NEGATIVE); Methadone NEGATIVE (NEGATIVE); Opiates NEGATIVE (NEGATIVE); Phencyclidine NEGATIVE (NEGATIVE); THC Cannibis NEGATIVE (NEGATIVE)
--- NOTE | 2022-10-27 19:53 | CON ---
Date of Consultation: 10/27/2022 Reason For Consultation: Severe systolic heart failure. History Of Present Illness: This is a 32-year-old male who has been having shortness of breath on ex ertion and lower extremity edema. No chest pain. Echo was done and the ejection fraction is less th an 20%. Denies having any chest pain. No recent sickness. Past Medical History: None. Medications: None. Allergies: NO KNOWN DRUG ALLERGIES. Family History: No premature coronary artery disease or cancer. Social History: Does not smoke or drink. Does not use any drugs. Review of Systems: All systems reviewed and were negative except for mentioned in HPI. Physical Examination: Vital Signs: Temperature is 98.8, pulse is 106, breathing at 21, blood pressure 111/75, saturating 9 6% on room air. General: Pleasant young male, in no apparent distress. Head and Neck: Pupils are equal, reactive to light. Intact eye movements. No cervical lymphadenopa thy. Neck: Supple. Thyroid is not enlarged. Lungs: Clear to auscultation bilaterally. No rhonchi, wheezing, or crackles. No accessory muscle u se. Heart: Regular rate and rhythm. No extra sounds. Abdomen: Soft, nontender. Bowel sounds positive. No organomegaly. No masses or hernia. No rigidi ty or rebound. Extremities: No clubbing, cyanosis. No edema. Skin: No rash. Neurologic: Alert, awake, oriented x3. No acute focal deficits appreciated. Investigations: BUN 21, creatinine 0.89. Hemoglobin 7.5. Assessment/recommendations: Severe systolic heart failure. Etiology is not clear. Recommend exerci se nuclear stress test to rule out ischemia. In the interim, increase metoprolol to 25 mg twice a da y and try to introduce Entresto. Discontinue the diuretics as he appears to be euvolemic and this is to initiate the Entresto and the beta mann first. Please obtain an exercise nuclear stress test on him. SR/MODL Voice ID: [id number] Report ID: [id number]
[2022-10-27] MEDS: ATORVASTATIN 40 MG TAB PO SCH (20:17)
[2022-10-27 22:42] LABS: Hematocrit 23.5 % (39.6-49.0)
[2022-10-28 04:35] LABS: Absolute Lymphocytes (CBC) 0.8 K/uL (0.7-4.9); Hematocrit 25.9 % (39.6-49.0); Lymphocytes % 7.9 % (15.3-44.8); MCV 72.8 fL (80-100); MPV 8.9 fL (7.6-11.3); RBC Red Blood Cell Count 3.55 M/uL (4.33-5.43)
[2022-10-28 04:43] LABS: Potassium 4.2 mmol/L (3.5-5.1)
[2022-10-28] MEDS: METOPROLOL TAR 25 MG TAB PO SCH ×2 (05:12→17:19)
[2022-10-28] MEDS: SPIRONOLACTONE 25 MG TABLET PO SCH (08:33)
[2022-10-28] MEDS ORDERED: METHYLPREDNISOLONE 125 MG INJ IV SCH (09:47)
--- NOTE | 2022-10-28 09:49 | P.PN ---
Subjective Date of Service: 10/28/22 Primary Care Provider: None Chief Complaint: Hemoptysis, abnormal ECHO Still short of breath no significant change complaining of hemoptysis Review of Systems General: Weakness Respiratory: Cough, Shortness of Breath, Hemoptysis Physical Examination - Vital Signs Temperature: 99.1 F Blood Pressure: 120/71 Pulse: 106 Respirations: 35 Pulse Ox (%): 90 - Physical Exam General: Alert, In no apparent distress, Oriented x3 Respiratory: Clear to auscultation bilaterally Cardiovascular: No edema, Normal S1 S2 Assessment And Plan - Current Problems (Diagnosis) (1) Hemoptysis Current Visit: Yes Status: Acute Plan: Most likely the patient has pulmonary hemorrhage renal function is normal urinalysis is also normal CRP has been elevated and to start him on high doses of steroids at least 1 g of Solu-Medrol for 24 hours await lab test before considering biopsy C sputum AFBs Physician Review: Patient Assessed, Agree with Above Assessment and Plan
[2022-10-28] MEDS: METHYLPRED NA SUC 250 MG in NA CHLORIDE 0.9% 100 ML IV SCH ×3 (12:31→23:40)
--- NOTE | 2022-10-28 17:40 | P.PN ---
Subjective Date of Service: 10/28/22 Primary Care Provider: None Chief Complaint: Hemoptysis, abnormal ECHO No acute events overnight. He reports no change in his symptoms compared to yesterday. He continues to display hemoptysis. He denies any chest pain or palpitations. Review of Systems 10-point ROS is otherwise unremarkable Respiratory: Cough, Shortness of Breath, Hemoptysis Physical Examination - Vital Signs Temperature: 98.6 F Blood Pressure: 100/60 Pulse: 126 Respirations: 18 Pulse Ox (%): 99 Assessment And Plan - Plan - Physical Exam General: Alert, In no apparent distress, Oriented x3 HEENT: Atraumatic, Mucous membr. moist/pink, EOMI, Sclerae nonicteric Neck: Other (difficult to assess JVD given habitus) Respiratory: Diminished, Crackles/rales (bibasilar) Cardiovascular: No gallops, No rubs, No murmurs, Edema (1-2+ BLE), Irregular heart rate/rhythm Gastrointestinal: Soft and benign, Non-distended, No tenderness, No rebound, No guarding Musculoskeletal: No clubbing Integumentary: No rashes Neurological: Normal speech, Normal affect Assessment And Plan - Plan # Acute Decompensated Systolic Congestive Heart Failure with Reduced Ejection Fraction # SIRS Criteria (Tachycardia, Tachypnea) due to above - no current evidence of infection - Consult Cardiology and spoke with Dr. Torres - recommendations appreciated - Outpatient transthoracic echocardiogram reportedly with dilated cardiomyopathy and LVEF <20 % - NT-Pro BNP = 1,582 - Diuresis with IV furosemide - Started metoprolol, if blood pressure tolerates, will consider adding sacubutril-valsartan - Continue spironolactone - Daily weights - Strict I/O - Cardiac diet, 1.5 L fluid restriction, 2 g Na restriction # Suspect Acute on Chronic Blood Loss Anemia secondary to Hemoptysis and concern for Pulmonary Hemorrhage Differential diagnoses at this time is broad. - Chest x-ray = "Vascular congestion. No definite alveolar edema. No consolidative airspace disease." - CT chest = "Moderate ground-glass attenuation is seen in both lungs, greatest in the lower lobes and more pronounced on the right.This is moderately progressive since comparative study. Findings are nonspecific but may represent pulmonary edema/ volume overload or viral alveolitis or COVID infection." - Pulmonary Medicine consulted and spoke with Dr. Herndon - recommendations appreciated - Per Dr. Herndon - methylprednisolone started at 250 mg IV q6hr - Serial H&H - s/p 1 unit pRBCs thus far - Hgb: 6.8 -> 7.2 -> 7.5 -> 8.3 -> 8.0 -> 7.5 -> 8.2 - CRP = 33.5 - Ordered LO, C-ANCA, P-ANCA, C3/C4, anti-phospholipid antibodies, anti-GBM, GILBERTO level, and HIV - Verbal consent obtained for HIV screen # Paroxysmal Atrial Fibrillation with Rapid Ventricular Response His [id number] = 1 (CHF=1). - Consult Cardiology and spoke with Dr. Torres - recommendations appreciated - Evaluation thus far: - Troponin = 11.0 -> 10.1 -> 10.5 - Potassium = 4.0, Magnesium = 2.1 - Target K> 4, Mg >2 - TSH = 0.387 - BNP = 1,582 - For rate control: - Started metoprolol # Hepatic Steatosis # Morbid Obesity - BMI 41.1 kg/m2 - RUQ ultrasound = "negative for cholelithiasis or acute cholecystitis. No biliary duct dilatation. 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
--- NOTE | 2022-10-28 17:43 | EKG ---
Test Date: 2022-10-26 Test Time: 10:38:50 Research Software Engineer: ROXANNE MEASUREMENT RESULTS: Intervals: Rate: 116 NH: 162 QRSD: 100 QT: 350 QTc: 486 Lampe: P: 30 NH: 162 QRS: 20 T: 16 INTERPRETIVE STATEMENTS: Sinus tachycardia Otherwise normal ECG No previous ECG available for comparison Electronically Signed On 10-28-22 17:40:48 [employer] INS[employer] RECORD CLERK by Pascual Torres
[2022-10-28] MEDS: ATORVASTATIN 40 MG TAB PO SCH (20:18)
--- NOTE | 2022-10-28 22:31 | PN ---
Date of Progress Note: 10/28/2022 Subjective: Seen by bedside. Doing well. Less short of breath. Review of Systems: No chest pain. He had hemoptysis due to pulmonary hemorrhage, but it stopped. Denies having any silas sea, vomiting, or diarrhea. He has shortness of breath on exertion. No chest pain. No history of d ysuria, polyuria, or urinary urgency. All other systems reviewed are negative. His hemoglobin is 8.2 and his BUN 16, creatinine 0.87. Assessment And Recommendations: 1.New onset systolic heart failure. He is on Lopressor 25 mg twice a day. Heart rate is still fast . Blood pressure is on the low side. Recommend to start low-dose GILBERTO inhibitor with lisinopril 5 mg daily if the blood pressure allows and titrate the beta-mann gradually. 2.Pulmonary hemorrhage with severe systolic heart failure, suggestive of systemic process. He is cu rrently on high-dose steroids. We will obtain a sedimentation rate and CRP. His inflammatory marker s and LO are pending. Antiphospholipid antibody is pending and his hemoglobin is stable status post transfusion. Monitor closely. The patient may require bronchoscopy with biopsy. 3.Anemia due to acute blood loss, unstable. SR/MODL Voice ID: [id number] Report ID: [id number]
[2022-10-29 05:31] LABS: Absolute Lymphocytes (CBC) 0.6 K/uL (0.7-4.9); MCV 71.4 fL (80-100); MPV 9.1 fL (7.6-11.3)
[2022-10-29 05:47] LABS: Magnesium 2.3 mg/dL (1.6-2.4); Phosphorus 4.6 mg/dL (2.5-4.9); Potassium 4.3 mmol/L (3.5-5.1)
[2022-10-29] MEDS: METOPROLOL TAR 25 MG TAB PO SCH ×3 (05:54→16:50)
[2022-10-29] MEDS: METHYLPRED NA SUC 250 MG in NA CHLORIDE 0.9% 100 ML IV SCH ×4 (05:55→23:46)
[2022-10-29] MEDS: SPIRONOLACTONE 25 MG TABLET PO SCH (07:48)
[2022-10-29 09:02] LABS: Anisocytosis 1+; Blood Morphology Comment NOTED (NOT SEEN); Hypochromasia 2+; Platelet Estimate ADEQ; White Blood Cell Scan OK (OK)
--- NOTE | 2022-10-29 15:07 | P.PN ---
Subjective Date of Service: 10/29/22 Primary Care Provider: None Chief Complaint: Hemoptysis, abnormal ECHO No acute events overnight. He reports persistent hemoptysis, but mentioned that it has decreased in frequency since starting the steroids yesterday. He denies any chest pain or palpitations. Plan is for bronchoscopy tomorrow. Review of Systems 10-point ROS is otherwise unremarkable Respiratory: Cough, Shortness of Breath, Hemoptysis Physical Examination - Vital Signs Temperature: 98.2 F Blood Pressure: 104/59 Pulse: 109 Respirations: 34 Pulse Ox (%): 97 Assessment And Plan - Plan - Physical Exam General: Alert, In no apparent distress, Oriented x3 HEENT: Atraumatic, Mucous membr. moist/pink, Sclerae nonicteric Neck: Other (difficult to assess JVD given habitus) Respiratory: Diminished, Scattered rhonchi with bibasilar rales Cardiovascular: No gallops, No rubs, No murmurs, Edema (1+ BLE), Irregular heart rate/rhythm Gastrointestinal: Soft and benign, Non-distended, No tenderness, No rebound, No guarding Musculoskeletal: No clubbing Integumentary: No rashes Neurological: Normal speech, Normal affect Assessment And Plan - Plan # Acute Decompensated Systolic Congestive Heart Failure with Reduced Ejection Fraction # SIRS Criteria (Tachycardia, Tachypnea) due to above - no current evidence of infection - Consult Cardiology and spoke with Dr. Torres - recommendations appreciated - Outpatient transthoracic echocardiogram reportedly with dilated cardiomyopathy and LVEF <20 % - NT-Pro BNP = 1,582 - Diuresis with IV furosemide - Started metoprolol, if blood pressure tolerates, will consider adding sacubutril-valsartan - Continue spironolactone - Daily weights - Strict I/O - Cardiac diet, 1.5 L fluid restriction, 2 g Na restriction # Suspect Acute on Chronic Blood Loss Anemia secondary to Hemoptysis and concern for Pulmonary Hemorrhage Differential diagnoses at this time is broad. - Chest x-ray = "Vascular congestion. No definite alveolar edema. No consolidative airspace disease." - CT chest = "Moderate ground-glass attenuation is seen in both lungs, greatest in the lower lobes and more pronounced on the right.This is moderately progressive since comparative study. Findings are nonspecific but may represent pulmonary edema/ volume overload or viral alveolitis or COVID infection." - Pulmonary Medicine consulted and spoke with Dr. Herndon - recommendations appreciated - Per Dr. Herndon - methylprednisolone started at 250 mg IV q6hr - Serial H&H - s/p 1 unit pRBCs thus far - Hgb: 6.8 -> 7.2 -> 7.5 -> 8.3 -> 8.0 -> 7.5 -> 8.2 -> 8.0 - CRP = 33.5 - Ordered LO, C-ANCA, P-ANCA, C3/C4, anti-phospholipid antibodies, anti-GBM, GILBERTO level, and HIV - Verbal consent obtained for HIV screen - Plan for bronchoscopy on 10/30/2022 # Paroxysmal Atrial Fibrillation with Rapid Ventricular Response His [id number] = 1 (CHF=1). - Consult Cardiology and spoke with Dr. Torres - recommendations appreciated - Evaluation thus far: - Troponin = 11.0 -> 10.1 -> 10.5 - Potassium = 4.0, Magnesium = 2.1 - Target K> 4, Mg >2 - TSH = 0.387 - BNP = 1,582 - For rate control: - Started metoprolol # Hepatic Steatosis # Morbid Obesity - BMI 41.1 kg/m2 - RUQ ultrasound = "negative for cholelithiasis or acute cholecystitis. No biliary duct dilatation. 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
[2022-10-29] MEDS: ATORVASTATIN 40 MG TAB PO SCH (20:13)
[2022-10-30 05:23] LABS: Magnesium 2.3 mg/dL (1.6-2.4); Phosphorus 3.3 mg/dL (2.5-4.9); Potassium 4.1 mmol/L (3.5-5.1)
[2022-10-30] MEDS: METOPROLOL TAR 25 MG TAB PO SCH ×2 (05:25→17:27)
[2022-10-30] MEDS: METHYLPRED NA SUC 250 MG in NA CHLORIDE 0.9% 100 ML IV SCH ×4 (05:25→23:07)
[2022-10-30] MEDS ORDERED: REGADENOSON 0.4 MG/5 ML SYR IV ONE (08:05)
[2022-10-30 09:01] LABS: Absolute Lymphocytes (CBC) 0.6 K/uL (0.7-4.9); Hematocrit 25.4 % (39.6-49.0); Lymphocytes % 2.9 % (15.3-44.8); MCV 72.5 fL (80-100); MPV 9.2 fL (7.6-11.3); RBC Red Blood Cell Count 3.51 M/uL (4.33-5.43)
[2022-10-30 09:03] LABS: Protime INR 1.37
[2022-10-30] MEDS: SPIRONOLACTONE 25 MG TABLET PO SCH (10:04)
--- NOTE | 2022-10-30 10:35 | RAD REPORT ---
EXAM DESCRIPTION: NM - Rest Stress Cardiac Imaging - 10/30/2022 9:53 am CLINICAL HISTORY: Chest pain COMPARISON: CT chest 10/26/2022, portable chest 10/26/2022 TECHNIQUE: The patient was administered 10.1 mCi of Tc 99m Sestamibi prior to resting SPECT imaging of the heart. The patient was then administered 31.1 mCi of Tc 99m Sestamibi following exercise or ph armacologic stress. Multiplanar SPECT images were reviewed. FINDINGS: The end diastolic volume is 281 ml, the end systolic volume is 216 ml, and the ejection fr action is 23 %. No areas of stress-induced ischemia identifiable. There is diminished activity along the inferior wal l unchanged between rest and stress imaging. This is probably due to artifact from the diaphragm due to the ventriculomegaly. Scarring is possible. Small focus of decreased activity anteroseptal wall ne ar the apex does not change between rest and stress imaging. IMPRESSION: No stress induced ischemia identifiable. Decreased activity along the inferior wall is favored to be attenuation artifact due to the ventricul omegaly. Calculated end-diastolic volume of 281 mL with a poor 23% ejection fraction.
[2022-10-30] MEDS ORDERED: VITAMIN K (ADULT) 10 MG/ML SQ ONE (11:00)
[2022-10-30] MEDS ORDERED: Phenylephrine HCl 10 MG/ML 1 ML VIAL ONE (11:01)
[2022-10-30] MEDS ORDERED: LIDOCAINE 4% TOP SOLUTION ONE (11:08)
[2022-10-30 12:10] LABS: Protime INR 1.35
[2022-10-30 12:32] LABS: Albumin 3.1 g/dL (3.4-5.0); Bilirubin Direct 0.3 mg/dL (0-0.2); Bilirubin Total 1.2 mg/dL (0.2-1.0)
[2022-10-30 12:43] LABS: RBC Red Blood Cell Count 3.58 M/uL (4.33-5.43)
--- NOTE | 2022-10-30 12:50 | P.PN ---
Subjective Date of Service: 10/30/22 Primary Care Provider: None Chief Complaint: Hemoptysis, abnormal ECHO Patient still continues to have hemoptysis hemoglobin has declined neurological tests are pending been on high-dose steroids no change really diminished ejection fraction Review of Systems General: Weakness Respiratory: Shortness of Breath, Hemoptysis Physical Examination - Vital Signs Temperature: 97.3 F Blood Pressure: 108/87 Pulse: 117 Respirations: 29 Pulse Ox (%): 100 - Physical Exam General: Alert, In no apparent distress, Oriented x3 Respiratory: Clear to auscultation bilaterally Cardiovascular: No edema, Regular rate/rhythm Assessment And Plan - Current Problems (Diagnosis) (1) Hemoptysis Current Visit: Yes Status: Acute Plan: Patient has pulmonary hemorrhage with a cardiomyopathy ejection fraction around 25% still continues to have hemoptysis despite his 2 days of 1 g IV of Solu- Medrol will do for another day and stop commend transfer to a tertiary care facility he is high risk for bleeding have elevated pulmonary venous pressures high risk for biopsies patient's PT and INR are also elevated he is to have an element of intravascular hemolysis elevated reticulocyte count direct and indirect bilirubin both elevated urobilinogen detected in the urine direct Aury test is pending oxygenation satisfactory transfuse 1 unit of packed red blood cells and vitamin K Physician Review: Patient Assessed, Agree with Above Assessment and Plan
--- NOTE | 2022-10-30 15:17 | P.PN ---
Subjective Date of Service: 10/30/22 Patient is clinically doing little bit better. Hemoptysis have improved and respiratory status is much better. Schedule for stress test in the a.m. Review of Systems 10-point ROS is otherwise unremarkable Physical Examination - Vital Signs Temperature: 97.3 F Blood Pressure: 108/87 Pulse: 117 Respirations: 29 Pulse Ox (%): 100 - Physical Exam General: Alert, In no apparent distress, Oriented x3 Respiratory: Diminished, Crackles/rales Cardiovascular: Regular rate/rhythm, Normal S1 S2, No murmurs Gastrointestinal: Soft and benign, Non-distended, No tenderness, No rebound, No guarding Musculoskeletal: No clubbing, No swelling, No tenderness Neurological: Sensation intact, Cranial nerves 3-12 intact - Studies Medications List Reviewed: Yes Assessment & Plan - Problems (Diagnosis) (1) Cardiomyopathy Current Visit: Yes Status: Acute (2) Anemia Current Visit: Yes Status: Acute (3) Hemoptysis Current Visit: Yes Status: Acute - Plan 1. Echocardiogram with ejection fraction of 20%; unknown etiology for cardiomyopathy. Stress test pending 2. Continue with IV steroid; waiting for autoimmune workup 3. Cardiology consultation appreciated 4. Patient with hemolysis with elevated indirect bilirubin and severe anemia. Check LDH; patient has gotten multiple doses of steroids. And direct bilirubin has decreased. LDH is normal. 5. Continue with diuresis 6. Strict I's and O's 7. Repeat CXR 8. Monitor H&H 9. Spoke with Pulmonary-recommend transfer to tertiary care facility patient is too high risk to have a bronchoscopy done at our hospital without backup. Discharge Plan: Other Plan to discharge in: Greater than 2 days - Advance Directives Does patient have a Living Will: No Does patient have a Durable POA for Healthcare: No - Code Status/Comfort Care Code Status Assessed: Yes Code Status: Full Code Physician Review: Patient Assessed, Agree with Above Assessment and Plan Critical Care: No Time Spent Managing PTS Care (In Minutes): 45
[2022-10-30] MEDS ORDERED: NA CHLORIDE 0.9% 100 ML ONE (18:22)
[2022-10-30] MEDS: ATORVASTATIN 40 MG TAB PO SCH (20:48)
[2022-10-31 01:07] LABS: Hematocrit 25.2 % (39.6-49.0)
[2022-10-31] MEDS ORDERED: NA CHLORIDE 0.9% 100 ML ONE (01:49)
[2022-10-31] MEDS: METOPROLOL TAR 25 MG TAB PO SCH ×2 (06:00→17:12)
--- NOTE | 2022-10-31 07:05 | TREADPHA ---
DX: LOW EJECTION FRACTION Date of Study: 10/30/2022 Ht: 5' 9 " Wt: 275 lb 6.4 oz Consulting Physician: ANKIT MEDICATIONS: TYLENOL, PROVENTIL, LIPITOR, BENZONATE, ROBITUSSIN, LOPRESSOR, ALDACTONE, METHYLPREDNISOLONE HISTORY: PHYSICIAL EXAMINATION: RESTING B.P.: 107/75 RESTING H.R.: 106 RESTING EKG: PROTOCOL: PHARMACOLOGIC EXERCISE TIME: 3:30 B.P. AT [facility]AK STRESS: 110/45 IMPRESSION: NORMAL SINUS RHYTHM, FLAT T IN INFEROLATERAL LEADS. LEXISCAN STRES TEST PERFORMED. CARDIOLITE INJECTED PER PROTOCOL. NO SUPRAVENTRICULAR TACHYCARDIA, NO VENTRICULAR TACHYCARDIA, NO CHEST PAIN NOTED. PREMATURE VENTRICULAR COMPLEXES THROUGHOUT PROCEDURE. SEE NUCLEAR MEDICINE REPORT. NO ELECTROCARDOGRAM CHANGES OF ISCHEMIA.
[2022-10-31 07:36] LABS: Protime INR 1.23
[2022-10-31 07:39] LABS: Absolute Lymphocytes (CBC) 0.7 K/uL (0.7-4.9); Hematocrit 29.7 % (39.6-49.0); Lymphocytes % 3.8 % (15.3-44.8); MCV 73.7 fL (80-100); MPV 9.6 fL (7.6-11.3); RBC Red Blood Cell Count 4.02 M/uL (4.33-5.43)
[2022-10-31 07:43] LABS: Potassium 4.3 mmol/L (3.5-5.1)
[2022-10-31] MEDS: SPIRONOLACTONE 25 MG TABLET PO SCH (08:17)
[2022-10-31 08:24] LABS: HIV AG/AB 4TH GEN Non-reactive (Non-reactive)
[2022-10-31] MEDS: Fluticasone/Umeclidin/Vilanter [Trelegy Ellipta 100-62.5-25] Blst.W.Dev IH SCH (08:28)
--- NOTE | 2022-10-31 10:47 | RAD REPORT ---
EXAM DESCRIPTION: Gideon Single View10/31/2022 10:04 am CLINICAL HISTORY: HEMOPTYSIS COMPARISON: October 26, 2022 FINDINGS: Bilateral pulmonary opacities appear to have mostly resolved. Upper lobe vessels prominent indicative of pulmonary venous hypertension Heart remains enlarged IMPRESSION: Bilateral pulmonary opacities appear to have mostly resolved
[2022-10-31] MEDS: ATORVASTATIN 40 MG TAB PO SCH (19:51)
--- NOTE | 2022-11-01 00:57 | P.PN ---
Date of Service: 10/31/22 Subjective Stress test with no reversible ischemia. Awaiting for bed assignment as patient is in Med-surg at this time. Review of Systems 10-point ROS is otherwise unremarkable Physical Examination - Vital Signs reviewed - Physical Exam General: Alert, In no apparent distress, Oriented x3 Respiratory: Diminished, Crackles/rales Cardiovascular: Regular rate/rhythm, Normal S1 S2, No murmurs Gastrointestinal: Soft and benign, Non-distended, No tenderness, No rebound, No guarding Musculoskeletal: No clubbing, No swelling, No tenderness Neurological: Sensation intact, Cranial nerves 3-12 intact - Studies Medications List Reviewed: Yes Assessment & Plan - Problems (Diagnosis) (1) Cardiomyopathy Current Visit: Yes Status: Acute (2) Anemia Current Visit: Yes Status: Acute (3) Hemoptysis Current Visit: Yes Status: Acute - Plan 1. Echocardiogram with ejection fraction of 20%; unknown etiology for cardiomyopathy. Stress test pending 2. Continue with IV steroid; waiting for autoimmune workup 3. Cardiology consultation appreciated 4. Patient with hemolysis with elevated indirect bilirubin and severe anemia. Check LDH; patient has gotten multiple doses of steroids. And direct bilirubin has decreased. LDH is normal. 5. Continue with diuresis 6. Strict I's and O's 7. Repeat CXR 8. Monitor H&H 9. Spoke with Pulmonary-recommend transfer to tertiary care facility patient is too high risk to have a bronchoscopy done at our hospital without backup.
--- NOTE | 2022-11-01 01:44 | P.PN ---
Date of Service: 11/01/22 Subjective Accepted by hospitalist team at [facility]. Spoke with Pulmonary and they are willing to accept the patient as well. Awaiting for transfer. Review of Systems 10-point ROS is otherwise unremarkable Physical Examination - Vital Signs reviewed - Physical Exam General: Alert, In no apparent distress, Oriented x3 Respiratory: Diminished, Crackles/rales Cardiovascular: Regular rate/rhythm, Normal S1 S2, No murmurs Gastrointestinal: Soft and benign, Non-distended, No tenderness, No rebound, No guarding Musculoskeletal: No clubbing, No swelling, No tenderness Neurological: Sensation intact, Cranial nerves 3-12 intact - Studies Medications List Reviewed: Yes Assessment & Plan - Problems (Diagnosis) (1) Cardiomyopathy Current Visit: Yes Status: Acute (2) Anemia Current Visit: Yes Status: Acute (3) Hemoptysis Current Visit: Yes Status: Acute - Plan 1. Echocardiogram with ejection fraction of 20%; unknown etiology for cardiomyopathy. Stress test pending 2. Continue with IV steroid; waiting for autoimmune workup 3. Cardiology consultation appreciated 4. Patient with hemolysis with elevated indirect bilirubin and severe anemia. Check LDH; patient has gotten multiple doses of steroids. And direct bilirubin has decreased. LDH is normal. 5. Continue with diuresis 6. Strict I's and O's 7. Repeat CXR 8. Monitor H&H 9. Spoke with Pulmonary-recommend transfer to tertiary care facility patient is too high risk to have a bronchoscopy done at our hospital without backup.
[2022-11-01 03:38] LABS: Hematocrit 29.7 % (39.6-49.0); MCV 73.8 fL (80-100); MPV 9.3 fL (7.6-11.3); RBC Red Blood Cell Count 4.02 M/uL (4.33-5.43)
[2022-11-01 04:00] LABS: Albumin 2.9 g/dL (3.4-5.0); Bilirubin Total 0.9 mg/dL (0.2-1.0); C-Reactive Protein 5.12 mg/L (<3.00); Magnesium 2.4 mg/dL (1.6-2.4); Potassium 4.3 mmol/L (3.5-5.1); Protein, Total 6.5 g/dL (6.4-8.2)
[2022-11-01 04:03] VITALS: BMI 40.6
[2022-11-01] MEDS: METOPROLOL TAR 25 MG TAB PO SCH ×2 (05:53→17:20)
[2022-11-01] MEDS: SPIRONOLACTONE 25 MG TABLET PO SCH (08:08)
[2022-11-01] MEDS: Fluticasone/Umeclidin/Vilanter [Trelegy Ellipta 100-62.5-25] Blst.W.Dev IH SCH (08:08)
[2022-11-01] MEDS: predniSONE 20 MG TAB PO SCH ×2 (08:33→20:17)
--- NOTE | 2022-11-01 08:34 | RAD REPORT ---
EXAM DESCRIPTION: RAD - Chest Single View - 11/01/2022 5:39 am CLINICAL HISTORY: Hemoptysis Chest pain. COMPARISON: Chest Single View dated 10/31/2022; Chest Single View dated 10/26/2022; Chest Single View d ated 08/29/2022 FINDINGS: Portable technique limits examination quality. Mild pulmonary edema pattern is seen. Hazy opacity in the right lung base probably represents superim position of soft tissue with cannot rule out a developing infiltrate. The heart is moderately enlarge d. No displaced fractures. IMPRESSION: Mild CHF pattern is favored.
[2022-11-01] MEDS: ATORVASTATIN 40 MG TAB PO SCH (20:17)
[2022-11-01 21:48] LABS: Anti-Cardiolipin IgA Antibody <2.0 APL-U/mL (<20.0); Phosphatidylser & Prothrom IgG <9 U (<=30); Phosphatidylser & Prothrom IgM <9 U (<=30)
[2022-11-02] MEDS: METOPROLOL TAR 25 MG TAB PO SCH ×2 (05:17→17:04)
[2022-11-02 05:56] LABS: Hematocrit 29.5 % (39.6-49.0); Lymphocytes % 7.4 % (15.3-44.8); MCV 72.4 fL (80-100); MPV 9.1 fL (7.6-11.3); RBC Red Blood Cell Count 4.07 M/uL (4.33-5.43)
[2022-11-02] MEDS ORDERED: Phenylephrine HCl 10 MG/ML 1 ML VIAL ONE ×2 (07:22→12:31)
[2022-11-02] MEDS ORDERED: LIDOCAINE 4% TOP SOLUTION ONE (07:23)
[2022-11-02] MEDS: Fluticasone/Umeclidin/Vilanter [Trelegy Ellipta 100-62.5-25] Blst.W.Dev IH SCH (08:27)
[2022-11-02] MEDS: predniSONE 20 MG TAB PO SCH (08:28)
[2022-11-02] MEDS: SPIRONOLACTONE 25 MG TABLET PO SCH (08:28)
[2022-11-02] MEDS ORDERED: FENTANYL CITR 100 MCG/2 ML ONE (11:17)
[2022-11-02] MEDS ORDERED: LIDOCAINE 1% MPF 5 ML VIAL ONE (11:17)
[2022-11-02] MEDS ORDERED: propofoL 200 MG/20 ML VIAL IV ONE (11:17)
[2022-11-02] MEDS ORDERED: Ringers Lactate 1,000 ML IV ONE (11:21)
[2022-11-02] MEDS ORDERED: LIDOCAINE 1% MPF 30 ML VIAL ONE ×2 (11:45→12:08)
[2022-11-02] MEDS ORDERED: LIDOCAINE VISCOUS 2% SOLN 15 ML UDC ONE (11:56)
[2022-11-02] MEDS ORDERED: EPHEDRINE SULF 50 MG/ML VIAL ONE (12:31)
--- NOTE | 2022-11-02 12:57 | P.OP ---
Date of Service: 11/02/22 Findings and Operative Technique Pt is 32 yr AW hemoptysis/ Bronchoscopy no bleeding or clots in entire resp tract. DDX Upper airway Vs GI. Consult GI an dENt Flonase and PPi. DW relatives and Dr. Barrera. Bronchospcoy normal. Pt premedicated by anesthesia. No biopsies. Sequential BAL neg for bleeding. No complication. blood noted on the mask during bronch
[2022-11-02] MEDS: FLUTICASONE 50MCG NASAL SPRAY NAS SCH (13:54)
[2022-11-02] MEDS ORDERED: PANTOPRAZOLE 40MG TABLET PO SCH (16:30)
[2022-11-02] MEDS: ATORVASTATIN 40 MG TAB PO SCH (21:21)
[2022-11-03] MEDS: METOPROLOL TAR 25 MG TAB PO SCH ×2 (06:24→17:05)
--- NOTE | 2022-11-03 07:35 | P.PN ---
Date of Service: 11/02/22 Subjective Decision made by Pulmonary to proceed with bronchoscopy today. Patient is clinically better. Hemoptysis is improved. No longer going to transfer to tertiary care facility. Bronchoscopy here today and if this is negative may be able to discharge with oral steroids with outpatient follow-up. Review of Systems 10-point ROS is otherwise unremarkable Physical Examination - Vital Signs reviewed - Physical Exam General: Alert, In no apparent distress, Oriented x3 Respiratory: Diminished, Crackles/rales Cardiovascular: Regular rate/rhythm, Normal S1 S2, No murmurs Gastrointestinal: Soft and benign, Non-distended, No tenderness, No rebound, No guarding Musculoskeletal: No clubbing, No swelling, No tenderness Neurological: Sensation intact, Cranial nerves 3-12 intact - Studies Medications List Reviewed: Yes Assessment & Plan - Problems (Diagnosis) (1) Cardiomyopathy Current Visit: Yes Status: Acute (2) Anemia Current Visit: Yes Status: Acute (3) Hemoptysis Current Visit: Yes Status: Acute - Plan Continue with plan of care as mentioned below: 1. Echocardiogram with ejection fraction of 20%; unknown etiology for car diomyopathy. No reversible ischemia noted 2. will continue with oral steroids 3. Cardiology consultation appreciated 4. monitor H&H closely 5. Continue with diuresis 6. Strict I's and O's 7. Repeat CXR 8. Monitor H&H 9. Spoke with Pulmonary- they want to go ahead and proceed with bronchoscopy at our hospital.
[2022-11-03] MEDS: SPIRONOLACTONE 25 MG TABLET PO SCH (07:37)
[2022-11-03] MEDS: FLUTICASONE 50MCG NASAL SPRAY NAS SCH (07:38)
[2022-11-03 09:25] VITALS: O2SAT 96
[2022-11-03 16:28] VITALS: BP 101/74; TEMP 97.3
[2022-11-03 16:31] LABS: Hematocrit 32.3 % (39.6-49.0)
== END 2022-11-03 17:53 | disposition home or self-care (01) | DRG 292 ==
LOC: ER 10:19 → ERHOLD 12:05 → 3RD-ICU 10-27 16:19 → 4TH 11-01 22:39
PROVIDERS: ADMIT Internal Medicine; ATTEND Hospitalist
PROC: 30233N1 Transfusion of Nonautologous Red Blood Cells into Peripheral Vein, Percutaneous Approach (ICD-10-PCS; 2022-10-26)
PROC: 30233P1 Transfusion of Nonautologous Frozen Red Cells into Peripheral Vein, Percutaneous Approach (ICD-10-PCS; 2022-10-30)
PROC: 0BJ08ZZ Inspection of Tracheobronchial Tree, Via Natural or Artificial Opening Endoscopic (ICD-10-PCS; principal; 2022-11-02 12:00)
DX: I50.23 Acute on chronic systolic (congestive) heart failure (principal); D62 Acute posthemorrhagic anemia; R04.2 Hemoptysis; Z68.41 Body mass index [BMI] 40.0-44.9, adult; R65.10 Systemic inflammatory response syndrome (SIRS) of non-infectious origin without acute organ dysfunction; I42.9 Cardiomyopathy, unspecified; R04.89 Hemorrhage from other sites in respiratory passages; E66.01 Morbid (severe) obesity due to excess calories; I48.0 Paroxysmal atrial fibrillation; K76.0 Fatty (change of) liver, not elsewhere classified; D50.9 Iron deficiency anemia, unspecified; G47.33 Obstructive sleep apnea (adult) (pediatric); Z20.822 Contact with and (suspected) exposure to COVID-19
CPT/HCPCS: 36415; 71045; 71250; 76705; 78452; 80048; 80053; 80061; 80076; 80307; 81003; 82140; 82164; 82728; 83010; 83516; 83520; 83540; 83615; 83735; 83880; 84100; 84145; 84443; 84466; 84484; 85014; 85018; 85025; 85044; 85379; 85610; 85730; 86021; 86038; 86140; 86141; 86160; 86850; 86880; 86900; 86901; 87015; 87070; 87116; 87205; 87206; 87389; 87811; 93005; 93017; 94010; 99285; A9500; J1940; J2001; J2370; J2704; J2785; J2930; J3010; J3430; J7040; J7120; J7512; P9016

== ENCOUNTER 2025-02-22 10:37 | Emergency (ER) | payer BC ==
[2025-02-22] MEDS ORDERED: AZITHROMYCIN 250 MG TAB ONE (11:08)
[2025-02-22] MEDS ORDERED: NA CHLORIDE 0.9% 500 ML ONE (11:08)
[2025-02-22 11:23] LABS: Influenza A Ag Negative; Influenza B Ag Negative; SARS-CoV-2 Antigen Rapid Res Negative (Negative)
[2025-02-22 11:25] LABS: Absolute Eosinophils 0.1 K/uL (0-0.5); Absolute Lymphocytes (CBC) 0.8 K/uL (0.7-4.9); Absolute Monocytes 0.4 K/uL (0.1-1.3); Absolute Neutrophil 4.2 K/uL (1.8-8.0); Basophils % 0.4 % (0-1.3); Eosinophils % 1.8 % (0-4.4); Hematocrit 35.1 % (39.6-49.0); Hemoglobin 12.3 g/dL (13.6-17.9); Lymphocytes % 13.8 % (15.3-44.8); MCH 27.5 pg (27.0-35.0); MCV 78.7 fL (80-100); Monocytes % 7.6 % (3.3-12.3); Neutrophils % 76.4 % (41.7-73.7); Nucleated Red Blood Cells % 0.4 % (0-0); Platelets 169 thou/uL (152-406); RBC Red Blood Cell Count 4.46 M/uL (4.33-5.43); Red Cell Distribution Width 13.4 % (12.1-15.2)
--- NOTE | 2025-02-22 11:33 | RAD REPORT ---
EXAMINATION: TWO VIEW CHEST XR CLINICAL INDICATION: COUGH TECHNIQUE: 2 views of the chest was performed. COMPARISON: 11/01/2022 FINDINGS: Interstitial prominence bilaterally could indicate viral infection or mild interstitial edema. The he art is mildly to moderately enlarged. No displaced fractures evident.
[2025-02-22 11:47] LABS: Albumin 3.4 g/dL (3.4-5.0); Albumin/Globulin Ratio 0.9 (1.1-1.8); Anion Gap 9.7 mEq/L (5.0-15.0); Bilirubin Total 0.6 mg/dL (0.2-1.0); Globulin 3.8 g/dL (2.3-3.5); Potassium 3.7 mEq/L (3.5-5.1); Protein, Total 7.2 g/dL (6.4-8.2); Troponin High Sensitivity 24.2 pg/mL (<58.9)
[2025-02-22] MEDS ORDERED: CEFTRIAXONE 1000 MG/VIAL ONE (11:49)
[2025-02-22] MEDS ORDERED: FUROSEMIDE 20 MG/ 2ML VIAL ONE (11:50)
[2025-02-22] MEDS ORDERED: METOPROLOL TAR 25 MG TAB ONE (11:50)
--- NOTE | 2025-02-22 12:51 | ER ---
Nurse's Notes [facility] Name: Benitez Argueta Age: 34 yrs Sex: Male : 1990 Arrival Date: 02/22/2025 Time: 10:37 Bed 2 Private MD: Diagnosis: Acute upper respiratory infection, unspecified;Cough;Cardiomegaly;Chronic combined systolic (congestive) and diastolic (congestive) heart failure;Tachycardia, unspecified Presentation: 02/22 10:51 Chief complaint: Patient states: cough, congestion and body aches that began ss night. Coronavirus screen: Client denies travel out of the [place] in the last 14 days. Ebola Screen: Patient denies exposure to infectious person. Patient denies travel to an Ebola-affected area in the 21 days before illness onset. Initial Sepsis Screen: Does the patient meet any 2 criteria? No. Patient's initial sepsis screen is negative. Does the patient have a suspected source of infection? No. Patient's initial sepsis screen is negative. Risk Assessment: Do you want to hurt yourself or someone else? Patient reports no desire to harm self or others. Onset of symptoms was February 19, 2025. 10:51 Method Of Arrival: Ambulatory ss 10:51 Acuity: VAUGHN 3 ss Historical: - Allergies: 10:52 No Known Allergies; ss - Home Meds: 10:52 Entresto oral [Active]; Metoprolol [Active]; Furosemide Oral [Active]; ss - PMHx: 10:52 a fib; CHF; ss 11:05 Diabetes mellitus; ss - PSHx: 10:52 None; ss - Immunization history:: Adult Immunizations up to date. - Infectious Disease History:: Denies. - Social history:: Smoking status: Patient denies any tobacco usage or history of. - Family history:: not pertinent. Screenin:56 [facility] ED Fall Risk Assessment (Adult) History of falling in the last 3 months, mb9 including since admission No falls in past 3 months (0 pts) Confusion or Disorientation No (0 pts) Intoxicated or Sedated No (0 pts) Impaired Gait No (0 pts) Mobility Assist Device Used No (0 pt) Altered Elimination No (0 pt) Score/Fall Risk Level 0 - 2 = Low Risk Oriented to surroundings, Maintained a safe environment, Educated pt \T\ family on fall prevention, incl call for assistance when getting out of bed. Abuse screen: Denies threats or abuse. Nutritional screening: No deficits noted. Tuberculosis screening: No symptoms or risk factors identified. Assessment: 11:00 General: Appears uncomfortable, Behavior is cooperative. Pain: Denies pain. Neuro: mb9 Level of Consciousness is awake, alert, obeys commands, Oriented to person, place, time, situation, Appropriate for age. 11:00 Cardiovascular: Heart tones S1 S2 present Patient's skin is warm and dry. Respiratory: mb9 Reports cough that is Airway is patent Respiratory effort is even, unlabored, Respiratory pattern is regular, symmetrical, Breath sounds are clear bilaterally. GI: Abdomen is round non-distended. : No signs and/or symptoms were reported regarding the genitourinary system. EENT: Reports nasal congestion. Derm: Skin is pink, warm \T\ dry. Musculoskeletal: Range of motion: intact in all extremities. 12:45 Reassessment: Patient appears in no apparent distress at this time. Patient and/or cm10 family updated on plan of care and expected duration. Pain level reassessed. Patient is alert, oriented x 3, equal unlabored respirations, skin warm/dry/pink. Vital Signs: 10:51 BP 101 / 68; Pulse 122; Resp 18; Temp 98.6(O); Pulse Ox 96% on R/A; Weight 106.59 kg; ss Height 5 ft. 8 in. ; Pain 0/10; 11:30 BP 112 / 74; Pulse 65; Resp 18; Pulse Ox 95% ; mb9 11:56 BP 91 / 65; Pulse 117; Resp 18; Pulse Ox 97% on R/A; mb9 12:06 BP 102 / 62; Pulse 115; Resp 18; Pulse Ox 97% on R/A; mb9 13:00 BP 92 / 64; Pulse 119; Resp 16; Pulse Ox 99% on R/A; cm10 10:51 Body Mass Index 35.73 (106.59 kg, 172.72 cm) ss 10:51 Pain Scale: Adult ss ED Course: 10:41 Patient arrived in ED. gl 10:42 Cheikh Amaya MD is Attending Physician. zara 10:52 Triage completed. ss 10:52 Arm band placed on left wrist. ss 10:57 Mayra Yen, RN is Primary Nurse. cm10 11:19 Initial lab(s) drawn, by me, sent to lab. EKG done, by ED staff, reviewed by Cheikh Amaya MD. Inserted saline lock: 20 gauge in right forearm, using aseptic technique. Blood collected. Flushed with 10 mL NS. 11:25 Client placed on continuous cardiac and pulse oximetry monitoring. NIBP monitoring ty applied. 11:27 Chest Pa And Lat (2 Views) XRAY In Process Unspecified. EDMS 11:47 Primary Nurse role handed off by Mayra Yen, IMMANUEL [email or web address] 11:47 Felisha Lord, IMMANUEL is Primary Nurse. mb9 11:56 Placed in gown. Bed in low position. Call light in reach. Side rails up X 1. Provided leticia Education on: press call light if needing anything. Door closed. Noise minimized. Warm blanket given. Pillow given. 12:51 Pascual Torres MD is Referral Physician. zara 13:19 No provider procedures requiring assistance completed. IV discontinued, intact, cm10 bleeding controlled, No redness/swelling at site. Pressure dressing applied. Administered Medications: 11:19 Drug: NS 0.9% IV 500 ml 500 ml IV at 1 bolus once; to be given as a bolus over 30 mb9 minutes Volume: 500 ml; Route: IV; Rate: 1 bolus; Site: right forearm; 12:19 Follow up: Response: No adverse reaction; IV Status: Completed infusion; IV Intake: cm10 500ml 11:19 Drug: AZITHromycin PO 500 mg PO once Route: PO; mb9 11:43 Follow up: Response: No adverse reaction mb9 11:45 Not Given (Duplicate Order): [id number] mg IVP once; give over 2 minutes zara 11:50 Drug: Rocephin IV 1 grams IV at per protocol once; Given slow IV push per pharmacy mb9 instructions Route: IV; Rate: per protocol; Site: right forearm; 11:52 Follow up: IV Status: Completed infusion; IV Intake: 10ml cm10 12:55 Follow up: Response: No adverse reaction; IV Status: Completed infusion mb9 11:54 Drug: Metoprolol PO 25 mg PO once Route: PO; mb9 12:56 Follow up: Response: No adverse reaction mb9 12:19 Drug: Furosemide IVP 20 mg IVP once; give over 2 minutes Route: IVP; Site: right cm10 forearm; 12:56 Follow up: Response: No adverse reaction mb9 12:56 Not Given (Hemodynamic Parameters): [id number] mg PO once mb9 13:11 Drug: Aspirin PO Chewable Tablet 81 mg PO once Route: PO; cm10 13:19 Follow up: Response: Medication administered at discharge. cm10 Medication: 11:56 VIS not applicable for this client. mb9 Intake: 11:52 IV: 10ml; Total: 10ml. cm10 12:19 IV: 500ml; Total: 510ml. cm10 Outcome: 12:51 Discharge ordered by . zara 13:20 Discharged to home ambulatory, cm10 13:20 Condition: good 13:20 Discharge instructions given to patient, Instructed on discharge instructions, follow up and referral plans. medication usage, Demonstrated understanding of instructions, follow-up care, medications, Prescriptions given X 4, 13:20 Patient left the ED. cm10 Signatures: Dispatcher [employer] EDMS Cheikh Amaya MD MD cha Blanchard, Shelby, RN RN ss Wilkerson, Mary Beth, RN RN mb9 Mayra Yen RN RN cm10 Amor, Eduardo Hutchison, Diana, Reg Reg gl Corrections: (The following items were deleted from the chart) 11:54 11:47 BP 132 / 84; Pulse 65bpm; Resp 18bpm; Pulse Ox 95%; mb9 mb9 11:56 11:47 BP 112 / 74; Pulse 65bpm; Resp 18bpm; Pulse Ox 95%; mb9 mb9
--- NOTE | 2025-02-22 12:51 | EDPHYS ---
Physician Documentation [facility] Name: Benitez Argueta Age: 34 yrs Sex: Male : 1990 Arrival Date: 02/22/2025 Time: 10:37 Bed 2 Private MD: GILDA Physician Cheikh Amaya HPI: 02/22 11:31 This 34 yrs old Male presents to ER via Ambulatory with complaints of Flu zara Symptoms. 11:31 The patient has shortness of breath at rest, with light activity. Onset: The zara symptoms/episode began/occurred 2 day(s) ago. Duration: The symptoms are continuous, and are steadily getting worse. The patient's shortness of breath is aggravated by nothing, is alleviated by elevating head. The patient or guardian reports cough, flu symptoms, arthralgias, low-grade fever, myalgias. Modifying factors: The symptoms are alleviated by nothing. the symptoms are aggravated by activity. Associated signs and symptoms: Pertinent positives: productive cough. Severity of symptoms: At their worst the symptoms were moderate in the emergency department the symptoms are unchanged. The patient or guardian reports difficulty breathing. Historical: - Allergies: 10:52 No Known Allergies; ss - Home Meds: 10:52 Entresto oral [Active]; Metoprolol [Active]; Furosemide Oral [Active]; ss - PMHx: 10:52 a fib; CHF; ss 11:05 Diabetes mellitus; ss - PSHx: 10:52 None; ss - Immunization history:: Adult Immunizations up to date. - Infectious Disease History:: Denies. - Social history:: Smoking status: Patient denies any tobacco usage or history of. - Family history:: not pertinent. ROS: 11:33 Constitutional: Negative for fever, chills, and weight loss, Eyes: Negative for injury, zara pain, redness, and discharge, ENT: Negative for injury, pain, and discharge, Neck: Negative for injury, pain, and swelling, Cardiovascular: Negative for chest pain, palpitations, and edema, Abdomen/GI: Negative for abdominal pain, nausea, vomiting, diarrhea, and constipation, Back: Negative for injury and pain, : Negative for injury, bleeding, discharge, and swelling, MS/Extremity: Negative for injury and deformity, Skin: Negative for injury, rash, and discoloration, Neuro: Negative for headache, weakness, numbness, tingling, and seizure, Psych: Negative for depression, anxiety, suicide ideation, homicidal ideation, and hallucinations, Allergy/Immunology: Negative for hives, rash, and allergies, Endocrine: Negative for neck swelling, polydipsia, polyuria, polyphagia, and marked weight changes, 11:33 Respiratory: Positive for cough, 11:33 MS/extremity: Negative for acute changes, Exam: 11:33 Constitutional: This is a well developed, well nourished patient who is awake, alert, zara and in no acute distress. Head/Face: Normocephalic, atraumatic. Eyes: Pupils equal round and reactive to light, extra-ocular motions intact. Lids and lashes normal. Conjunctiva and sclera are non-icteric and not injected. Cornea within normal limits. Periorbital areas with no swelling, redness, or edema. ENT: Nares patent. No nasal discharge, no septal abnormalities noted. Tympanic membranes are normal and external auditory canals are clear. Oropharynx with no redness, swelling, or masses, exudates, or evidence of obstruction, uvula midline. Mucous membranes moist. Neck: Trachea midline, no thyromegaly or masses palpated, and no cervical lymphadenopathy. Supple, full range of motion without nuchal rigidity, or vertebral point tenderness. No Meningismus. Chest/axilla: Normal chest wall appearance and motion. Nontender with no deformity. No lesions are appreciated. Respiratory: Lungs have equal breath sounds bilaterally, clear to auscultation and percussion. No rales, rhonchi or wheezes noted. No increased work of breathing, no retractions or nasal flaring. Abdomen/GI: Soft, non-tender, with normal bowel sounds. No distension or tympany. No guarding or rebound. No evidence of tenderness throughout. Back: No spinal tenderness. No costovertebral tenderness. Full range of motion. Male : Normal genitalia with no discharge or lesions. Skin: Warm, dry with normal turgor. Normal color with no rashes, no lesions, and no evidence of cellulitis. MS/ Extremity: Pulses equal, no cyanosis. Neurovascular intact. Full, normal range of motion., bilateral aka Neuro: Awake and alert, GCS 15, oriented to person, place, time, and situation. Cranial nerves II-XII grossly intact. Motor strength 5/5 in all extremities. Sensory grossly intact. Cerebellar exam normal. Normal gait. Psych: Awake, alert, with orientation to person, place and time. Behavior, mood, and affect are within normal limits. 11:33 Cardiovascular: Rate: tachycardic, actual rate is 122 bpm, Rhythm: regular, Pulses: Pulses are 4+ in bilateral radial, brachial, femoral, popliteal, posterior tibial and and dorsalis pedis arteries.. Heart sounds: normal, Edema: is not appreciated, JVD: is not appreciated, 11:33 ECG was reviewed by the Attending Physician. 11:47 Musculoskeletal/extremity: ROM: no acute changes, intact in all extremities, full zara active range of motion, full passive range of motion, Circulation is intact in all extremities. Compartment Syndrome exam of affected extremity: is normal. Weight bearing: able to fully bear weight, without difficulty, DVT Exam: No signs of deep vein thrombosis. no pain, no swelling, no tenderness, negative Homans' sign noted on exam, no appreciated bluish discoloration, no erythema, no increased warmth, Vital Signs: 10:51 BP 101 / 68; Pulse 122; Resp 18; Temp 98.6(O); Pulse Ox 96% on R/A; Weight 106.59 kg; ss Height 5 ft. 8 in. ; Pain 0/10; 11:30 BP 112 / 74; Pulse 65; Resp 18; Pulse Ox 95% ; mb9 11:56 BP 91 / 65; Pulse 117; Resp 18; Pulse Ox 97% on R/A; mb9 12:06 BP 102 / 62; Pulse 115; Resp 18; Pulse Ox 97% on R/A; mb9 13:00 BP 92 / 64; Pulse 119; Resp 16; Pulse Ox 99% on R/A; cm10 10:51 Body Mass Index 35.73 (106.59 kg, 172.72 cm) ss 10:51 Pain Scale: Adult ss MDM: 10:42 Medical Screening Exam initiated [facility] 11:35 Differential diagnosis: Anxiety Reaction asthma, Bronchitis CHF exacerbation, Chronic zara Obstructive Pulmonary Disease obstructed airway, tracheal injury, bronchitis, flu, URI, pneumonia, Pneumothorax Psychogenic pulmonary edema, Unstable Angina. Antibiotic administration: The patient is discharged and will get outpatient antibiotics, Amoxicillin, Zithromax. Differential Diagnosis: Obstructed Airway Bronchitis. Immunization status:. Data reviewed: vital signs, nurses notes, lab test result(s), EKG, radiologic studies, plain films. Consideration of Admission/Observation Escalation of care including admission/observation considered. I considered the following discharge prescriptions or medication management in the emergency department Medications were administered in the Emergency Department. See MAR. Independent interpretation of the following test(s) in the Emergency Department EKG: See my EKG interpretation above. Test considered but Not performed: Ultrasound no 2 d echo. Counseling: I had a detailed discussion with the patient and/or guardian regarding the historical points, exam findings, and any diagnostic results supporting the discharge/admit diagnosis, lab results, radiology results, the need for outpatient follow up, for definitive care, a cyber defense analyst, a family practitioner. 12:52 ED course: CONTINUE ALL USUAL MEDS. [facility] 02/22 10:42 Order name: COVID-19 Ag + Flu A+B Ag; Complete Time: 11:29 [facility] 02/22 11:02 Order name: CBC with Diff; Complete Time: 11:44 [facility] 02/22 11:02 Order name: Comprehensive Metabolic Panel; Complete Time: 12:04 [facility] 02/22 11:02 Order name: Troponin HS; Complete Time: 12:04 [facility] 02/22 11:02 Order name: BNP; Complete Time: 12:04 [facility] 02/22 11:02 Order name: Chest Pa And Lat (2 Views) XRAY; Complete Time: 11:44 [facility] 02/22 11:02 Order name: EKG; Complete Time: 11:03 [facility] 02/22 11:02 Order name: EKG - Nurse/Tech; Complete Time: 11:19 [facility] 02/22 11:07 Order name: IV; Complete Time: 11:19 mb9 EC:33 Rate is 117 beats/min. Rhythm is regular. QRS Shannon is Normal. NM interval is normal. [facility] QRS interval is normal. QT interval is normal. No Q waves. T waves are Normal. No ST changes noted. Clinical impression: Sinus tachycardia and No evidence of ischemia. Interpreted by me. Reviewed by me. Administered Medications: :19 Drug: NS 0.9% IV 500 ml 500 ml IV at 1 bolus once; to be given as a bolus over 30 mb9 minutes Volume: 500 ml; Route: IV; Rate: 1 bolus; Site: right forearm; 12:19 Follow up: Response: No adverse reaction; IV Status: Completed infusion; IV Intake: cm10 500ml 11:19 Drug: AZITHromycin PO 500 mg PO once Route: PO; mb9 11:43 Follow up: Response: No adverse reaction mb9 11:45 Not Given (Duplicate Order): [id number] mg IVP once; give over 2 minutes zara 11:50 Drug: Rocephin IV 1 grams IV at per protocol once; Given slow IV push per pharmacy mb9 instructions Route: IV; Rate: per protocol; Site: right forearm; 11:52 Follow up: IV Status: Completed infusion; IV Intake: 10ml cm10 12:55 Follow up: Response: No adverse reaction; IV Status: Completed infusion mb9 11:54 Drug: Metoprolol PO 25 mg PO once Route: PO; mb9 12:56 Follow up: Response: No adverse reaction mb9 12:19 Drug: Furosemide IVP 20 mg IVP once; give over 2 minutes Route: IVP; Site: right cm10 forearm; 12:56 Follow up: Response: No adverse reaction mb9 12:56 Not Given (Hemodynamic Parameters): [id number] mg PO once mb9 13:11 Drug: Aspirin PO Chewable Tablet 81 mg PO once Route: PO; cm10 13:19 Follow up: Response: Medication administered at discharge. cm10 Disposition Summary: 02/22/25 12:51 Discharge Ordered Notes: Location: Home zara Problem: new zara Symptoms: have improved zara Condition: Stable zara Diagnosis - Acute upper respiratory infection, unspecified zara - Cough zara - Cardiomegaly zara - Chronic combined systolic (congestive) and diastolic (congestive) heart failure zara - Tachycardia, unspecified zara Followup: zara - With: Private Physician - When: 2 - 3 days - Reason: Recheck today's complaints, Continuance of care, Re-evaluation by your physician Followup: zara - With: Pascual Torres MD - When: 2 - 3 days - Reason: Recheck today's complaints, Continuance of care, Re-evaluation by your physician Discharge Instructions: - Discharge Summary Sheet zara - Heart Failure, Diagnosis zara - Cool Mist Vaporizer zara - Upper Respiratory Infection, Adult, Cfxg-lz-[id number] zara - Viral Respiratory Infection, Oauz-Up-Oqvw zara - Heart Failure, Diagnosis, Cpev-ku-Yoid zara - Cough, Adult zara - Sinus Tachycardia zara - Low-Sodium Eating Plan zara Forms: - Medication Reconciliation Form zara - Antibiotic Education zara - Prescription Opioid Use zara - Patient Portal Instructions zara - Leadership Thank You Letter [facility] Prescriptions: - Lasix 20 mg Oral tablet - take 1 tablet ORAL route 2 times per day; 40 tablet; Refills: 0, Product [facility] Selection Permitted - Potassium Chloride 20 meq Oral Packet - take 1 packet ORAL route once daily 1 packet in 6 (six) ounces of water or zara juice; Take after meal; 20 packet; Refills: 0, Product Selection Permitted - Tessalon Perles 100 mg Oral capsule - take 1 capsule ORAL route every 8 hours As needed; 30 capsule; Refills: 0, [facility] Product Selection Permitted - Zithromax 500 mg Oral Tablet - take 1 tablet ORAL route once daily for 5 days; 5 tablet; Refills: 0, Product [facility] Selection Permitted Signatures: Dispatcher [employer] Cheikh Patterson, Dorothea Alvarado MD, cha, RN IMMANUEL ss Pop, Felisha Jean, RN RN mb9 Mayra Yen RN RN cm10
[2025-02-22] MEDS ORDERED: ASPIRIN 81 MG CHEWABLE TABLET ONE (12:52)
[2025-02-22 14:04] VITALS: TEMP 98.6
[2025-02-22 14:10] VITALS: BP 92/64; O2SAT 99
--- NOTE | 2025-02-23 12:06 | EKG ---
Test Date: 2025-02-22 Test Time: 11:16:07 Microwave Technician: MB MEASUREMENT RESULTS: Intervals: Rate: 117 CT: 190 QRSD: 100 QT: 314 QTc: 438 [place]: P: -1 CT: 190 QRS: 50 T: 47 INTERPRETIVE STATEMENTS: Sinus tachycardia Otherwise normal ECG Compared to ECG 10/26/2022 10:38:50 No significant changes Electronically Signed On 02-23-25 12:05:08 CDT by lEias Parr
== END 2025-02-22 13:20 | disposition home or self-care (01) ==
LOC: ER 10:37
DX: J06.9 Acute upper respiratory infection, unspecified (principal); I51.7 Cardiomegaly; I50.42 Chronic combined systolic (congestive) and diastolic (congestive) heart failure; R00.0 Tachycardia, unspecified; Z11.52 Encounter for screening for COVID-19
CPT/HCPCS: 96361; 93005; 85025; 36415; 84484; 80053; 83880; 71046; 96375; 96374; 99285; 87428; J1938; J7040; J0696